=== PATIENT | female | born 1945 | race Caucasian/White ===

== ENCOUNTER 2016-03-15 10:41 | Outpatient (CLI) | payer MEDICARE, OTHER | END 2016-03-15 10:42 | disposition home or self-care (01) | DX: Z53.9 Procedure and treatment not carried out, unspecified reason (principal) ==

== ENCOUNTER 2016-03-28 11:01 | Outpatient (CLI) | payer MEDICARE, OTHER | END 2016-03-28 11:02 | disposition home or self-care (01) | DX: N64.4 Mastodynia (principal) ==

== ENCOUNTER 2016-04-13 11:50 | Outpatient (CLI) | payer MEDICARE, OTHER | END 2016-04-13 11:51 | disposition home or self-care (01) | DX: E78.5 Hyperlipidemia, unspecified (principal); I10 Essential (primary) hypertension; R00.2 Palpitations ==

== ENCOUNTER 2016-04-23 11:13 | Outpatient (CLI) | payer MEDICARE, OTHER | END 2016-04-23 11:14 | disposition home or self-care (01) | DX: M85.89 Other specified disorders of bone density and structure, multiple sites (principal) ==

== ENCOUNTER 2016-08-15 08:24 | Day surgery (SDC) | payer MEDICARE, OTHER ==
[2016-08-15] MEDS ORDERED: LACTATED RINGERS 1,000 ML IV ONE (08:44)
[2016-08-15] MEDS ORDERED: MIDAZOLAM 2 MG/2 ML VIAL IVP ONE (09:43)
[2016-08-15] MEDS ORDERED: fentaNYL 100 MCG/2 ML VIAL IVP ONE (09:43)
[2016-08-15 10:47] VITALS: BP 132/54
--- NOTE | 2016-08-15 11:39 | PROCEDURE REPORT ---
DATE OF PROCEDURE: 08/15/2016 00:00:00 PROCEDURE PERFORMED: Colonoscopy with biopsy. ENDOSCOPIST: Jose Smith MD PRIMARY CARE: Alireza Landon DO INDICATION: Diarrhea, rule out microscopic colitis. PREMEDICATIONS: Fentanyl 150 mcg, Versed 7 mg IV titration. After informed consent was obtained, the patient was placed in left lateral decubitus position. The v ideo colonoscope was introduced in the rectum, slowly advanced to the cecum. On slow withdrawal, muco sa was carefully examined. The scope was removed. The patient tolerated the procedure well. BLOOD LOSS: None. COMPLICATIONS: None. FINDINGS: Normal colonoscopy to cecum, though with perhaps some loss of normal vascular pattern. [place] om biopsies taken to rule out microscopic colitis. The patient will await biopsies and we will discuss over the telephone. She should have followup colo noscopy in 7-10 years. JOB #: [id number] EXT JOB #:[id number]
== END 2016-08-15 08:25 | disposition home or self-care (01) ==
LOC: SDS 08:24
PROVIDERS: ATTEND Internal Medicine Gastroenterology
PROC: 0DBE8ZX Excision of Large Intestine, Via Natural or Artificial Opening Endoscopic, Diagnostic (ICD-10-PCS; principal; 2016-08-15 09:30)
DX: R19.7 Diarrhea, unspecified (principal); K51.90 Ulcerative colitis, unspecified, without complications; I10 Essential (primary) hypertension; E78.00 Pure hypercholesterolemia, unspecified; K58.9 Irritable bowel syndrome, unspecified; I47.1 Supraventricular tachycardia; Z79.82 Long term (current) use of aspirin; Z88.0 Allergy status to penicillin; Z88.2 Allergy status to sulfonamides
CPT/HCPCS: 45380; J7120; 88305

== ENCOUNTER 2016-09-24 09:32 | Outpatient (CLI) | payer MEDICARE, OTHER | END 2016-09-24 09:33 | disposition home or self-care (01) | LOC: LAB.WCP 09:32 | PROVIDERS: ATTEND Internal Medicine Gastroenterology | DX: R19.7 Diarrhea, unspecified (principal) | CPT/HCPCS: 87493 ==

== ENCOUNTER 2017-07-08 08:00 | Outpatient (CLI) | payer MEDICARE, OTHER ==
[2017-07-08 18:54] LABS: BASOPHILS # (AUTO) 0.1 10^3/uL (0.0-0.1); BASOPHILS % (AUTO) 1.3 %; EOSINOPHILS # (AUTO) 0.4 10^3/uL (0.0-0.7); EOSINOPHILS % (AUTO) 5.8 %; HGB - HEMOGLOBIN 12.7 g/dL (12.0-16.0); LYMPHOCYTES # (AUTO) 1.7 10^3/uL (1.5-3.5); LYMPHOCYTES % (AUTO) 25.2 %; MEAN CORPUSCULAR HEMOGLOBIN 31.1 pg (27.0-31.0); MEAN CORPUSCULAR VOLUME 97.2 fL (81.0-99.0); MEAN PLATELET VOLUME 7.9 fL (7.9-10.8); MONOCYTES # (AUTO) 0.7 10^3/uL (0.0-1.0); MONOCYTES % (AUTO) 9.8 %; NEUTROPHILS # (AUTO) 3.9 10^3/uL (1.5-6.6); NEUTROPHILS % (AUTO) 57.9 %; PLT - PLATELET COUNT 289 10^3/uL (130-450); RED CELL DISTRIBUTION WIDTH 13.1 % (12.0-15.0); WHITE BLOOD COUNT 6.7 x10^3/uL (4.8-10.8)
[2017-07-08 19:26] LABS: ALBUMIN 4.5 g/dL (3.2-5.5); ALBUMIN/GLOBULIN RATIO 1.5 (1.0-2.2); ALKALINE PHOSPHATASE 91 IU/L (42-121); ALT ALANINE AMINOTRANSFERASE 33 IU/L (10-60); AST ASPARTATE AMINOTRANSFERASE 34 IU/L (10-42); BUN - BLOOD UREA NITROGEN 18 mg/dL (6-20); CALCIUM 9.2 mg/dL (8.5-10.3); CARBON DIOXIDE - CO2 24 mmol/L (21-32); CHLORIDE 103 mmol/L (101-111); CHOL/HDL RATIO 3.3 (<4.4); CHOLESTEROL 286 mg/dL; CREATININE 0.5 mg/dL (0.4-1.0); GFR - MDRD 121 (>89); GLUCOSE 86 mg/dL (70-100); HDL CHOLESTEROL 88 mg/dL; LDL CHOLESTEROL,CALCULATED 176 mg/dL; SODIUM 138 mmol/L (135-145); TOTAL PROTEIN 7.5 g/dL (6.7-8.2); VLDL CHOLESTEROL 22 mg/dL
== END 2017-07-08 08:01 | disposition home or self-care (01) ==
LOC: LAB.WCP 08:00
PROVIDERS: ATTEND Family Medicine
DX: R00.2 Palpitations (principal); E78.5 Hyperlipidemia, unspecified
CPT/HCPCS: 36415; 80053; 80061; 83721; 84443; 85025

== ENCOUNTER 2017-11-24 08:40 | Emergency (ER) | payer MEDICARE, OTHER ==
--- NOTE | 2017-11-24 09:02 | ED Physician Documentation ---
History of Present Illness - Stated complaint Stated Complaint: CP/PX LT SIDE SHOULDER/NECK/DIZZINESS - Chief complaint Chief Complaint: Cardiac - Additonal information Additional information: hx from pt 72 female has had L shoulder and neck pain for about 3 weeks started after digging holes in garden all day worse with moving neck and shoulder last night at midnight developed more severe pain that radiated to her chest no SOA diaphoresis NV no leg swelling or TTP did more lifting of heavy hoses yesterday otherwise well no fever cough NVD etc is vertiginous but not new for her has HTN HLD no DM CAD fhx CAD or smoking hx Review of Systems Constitutional: denies: Fever Cardiac: reports: Chest pain / pressure Respiratory: denies: Dyspnea GI: denies: Nausea, Vomiting Neurologic: reports: Other (dizzy). 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 : Incontinence HEENT: None Psych: None Musculoskeletal: None Derm: None - Past Surgical History Past Surgical History: Yes General: Appendectomy, Colonoscopy - Present Medications Home Medications: Ambulatory Orders Medication Instructions Recorded Confirmed Aspirin [Aspir-Low] 81 mg PO DAILY 05/31/13 08/15/16 Metoprolol Tartrate [Lopressor] 0 mg PO BID 05/31/13 08/15/16 Lidocaine Patch 5% [Lidoderm Patch] 1 each TOP DAILY PRN #10 patch 11/24/17 Meclizine [Antivert] 25 mg PO Q6H PRN #20 tablet 11/24/17 Pravastatin [Pravachol] 11/24/17 - Allergies Allergies/Adverse Reactions: Allergies Allergy/AdvReac Type Severity Reaction Status Date / Time oxycodone HCl * AdvReac Severe Hallucinati Verified 11/24/17 08:48 [From Percodan] ons oxycodone terephthalate * AdvReac Severe Hallucinati Verified 11/24/17 08:48 [From Percodan] ons Penicillins AdvReac Severe Itching Verified 11/24/17 08:48 Sulfa (Sulfonamide AdvReac Severe Itching Verified 11/24/17 08:48 Antibiotics) - Social History Does the pt smoke?: No Smoking Status: Never smoker Does the pt drink ETOH?: Yes Does the pt have substance abuse?: No - Immunizations Immunizations are current?: Yes PD ED PE NORMAL - Vitals Vital signs reviewed: Yes - General General: Alert and oriented X 3 - Cardiac Cardiac: RRR - Respiratory Respiratory: No respiratory distress - Abdomen Abdomen: Soft, Non tender - Derm Derm: Normal color - Extremities Extremities: No deformity - Neuro Neuro: Alert and oriented X 3, 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, No motor deficit, Normal speech Eye Opening: Spontaneous Motor: Obeys Commands Verbal: Oriented GCS Score: 15 Results - Vitals Vitals: Vital Signs - 24 hr 11/24/17 11/24/17 08:52 10:06 Temperature 36.2 C L Heart Rate 85 72 Respiratory 17 15 Rate Blood Pressure 189/81 H 154/69 H O2 Saturation 100 99 Oxygen O2 Source Room air - EKG (time done) 0845 Rate: Rate (enter#) (75) Rhythm: NSR Bell: Normal Intervals: Normal [place] Ischemia: Normal ST segments, Non specific changes (maybe very slght ST depr laterally) - Labs Labs: Laboratory Tests 11/24/17 11/24/17 11/24/17 09:21 09:21 09:21 WBC 6.2 RBC 3.83 L Hgb 12.5 Hct 36.6 L MCV 95.4 MCH 32.7 H MCHC 34.3 RDW 12.4 Plt Count 267 MPV 6.9 L Neut # (Auto) 3.5 Lymph # (Auto) 1.4 L [place] # (Auto) 0.7 Eos # (Auto) 0.6 Baso # (Auto) 0.1 Absolute Nucleated RBC 0.00 Nucleated RBC % 0.0 Sodium 138 Potassium 4.1 Chloride 103 Carbon Dioxide 25 Anion Gap 10.0 BUN 19 Creatinine 0.7 Estimated GFR (MDRD) 82 L Glucose 96 Calcium 9.1 Total Bilirubin 0.9 AST 40 ALT 55 Alkaline Phosphatase 129 H Troponin I < 0.04 Total Protein 7.2 Albumin 4.2 Globulin 3.0 Albumin/Globulin Ratio 1.4 Lipase 49 - Rads (name of study) CXR Radiology: See rad report (NACPD, tight normal mediastinum, no cap or effusion) PD MEDICAL DECISION MAKING - ED course ED course: labs EKG CXR all neg suspect muscular given hx gardening and worse with movements feels ER wup has ruled out ACS PE dissection pt and SO reassured will dc with symptomatic jj as well as meclizine for vertigo which is not new - Sepsis Event Vital Signs: Vital Signs - 24 hr 11/24/17 11/24/17 08:52 10:06 Temperature 36.2 C L Heart Rate 85 72 Respiratory 17 15 Rate Blood Pressure 189/81 H 154/69 H O2 Saturation 100 99 Oxygen O2 Source Room air Departure - Departure Disposition: 01 Home, Self Care Clinical Impression: Vertigo Chest pain Qualifiers: Chest pain type: unspecified Qualified Code(s): R07.9 - Chest pain, unspecified Condition: Good Instructions: ED Chest Pain Atypical Unkn Cause Follow-Up: Alireza Landon DO [Primary Care Provider] - Prescriptions: Lidocaine Patch 5% [Lidoderm Patch] 1 each TOP DAILY PRN #10 patch PRN Reason: Pain Meclizine [Antivert] 25 mg PO Q6H PRN #20 tablet PRN Reason: Dizziness Comments: All your tests came back fine. The EKG, the blood tests for your heart, the xray It does not seem this pain is due to a heart attack, a blood clot in your lungs nor an aneuryms or tear of your aorta It may be due to muscular pain given your recent gardening and moving hoses and since it hurts more when you move I think it is safe for you to go home with tylenol and lidocaine patches as needed for the pain And meclizine to try for your recurrent vertigo Please follow up with your PMD for a recheck this week. Return f worse or new symptoms develop
[2017-11-24] MEDS ORDERED: ACETAMINOPHEN 1,000 MG/100 ML 100 ML IV STA (09:06)
[2017-11-24] MEDS ORDERED: MECLIZINE 12.5 MG TABLET PO STA (09:06)
[2017-11-24] MEDS ORDERED: LIDOCAINE PATCH 5% TOP PRN (09:06)
[2017-11-24 09:25] LABS: BASOPHILS # (AUTO) 0.1 10^3/uL (0.0-0.1); BASOPHILS % (AUTO) 1.5 %; EOSINOPHILS # (AUTO) 0.6 10^3/uL (0.0-0.7); EOSINOPHILS % (AUTO) 9.1 %; HGB - HEMOGLOBIN 12.5 g/dL (12.0-16.0); LYMPHOCYTES # (AUTO) 1.4 10^3/uL (1.5-3.5); LYMPHOCYTES % (AUTO) 22.4 %; MEAN CORPUSCULAR HEMOGLOBIN 32.7 pg (27.0-31.0); MEAN CORPUSCULAR HGB CONC 34.3 g/dL (32.0-36.0); MEAN CORPUSCULAR VOLUME 95.4 fL (81.0-99.0); MEAN PLATELET VOLUME 6.9 fL (7.9-10.8); MONOCYTES # (AUTO) 0.7 10^3/uL (0.0-1.0); MONOCYTES % (AUTO) 10.8 %; NEUTROPHILS # (AUTO) 3.5 10^3/uL (1.5-6.6); NEUTROPHILS % (AUTO) 56.2 %; PLT - PLATELET COUNT 267 10^3/uL (130-450); RED BLOOD COUNT 3.83 10^6/uL (4.20-5.40); RED CELL DISTRIBUTION WIDTH 12.4 % (12.0-15.0); WHITE BLOOD COUNT 6.2 x10^3/uL (4.8-10.8)
--- NOTE | 2017-11-24 09:34 | XRAY Report ---
Reason: cp Procedure Date: 11/24/2017 Accession Number: [id number] / [id number] Procedure: XR - Chest 1 View X-Ray CPT Code: 51794 FULL RESULT: EXAM: CHEST RADIOGRAPHY EXAM DATE: 11/24/2017 09:22 AM. CLINICAL HISTORY: Cp. COMPARISON: None. TECHNIQUE: 1 view. FINDINGS: Lungs/Pleura: No focal opacities evident. No pleural effusion. No pneumothorax. Mediastinum: Within exam limitations, the cardiomediastinal contour is normal. Other: Bones appear osteopenic. IMPRESSION: No acute cardiopulmonary abnormality. RADIA
[2017-11-24 09:38] LABS: ALBUMIN 4.2 g/dL (3.2-5.5); ALBUMIN/GLOBULIN RATIO 1.4 (1.0-2.2); BILIRUBIN,TOTAL 0.9 mg/dL (0.2-1.0); CALCIUM 9.1 mg/dL (8.5-10.3); CREATININE 0.7 mg/dL (0.4-1.0); TOTAL PROTEIN 7.2 g/dL (6.7-8.2)
[2017-11-24 10:07] VITALS: BP 154/69
[2017-11-24] MEDS ORDERED: KETOROLAC 60 MG/2 ML VIAL IVP STA (10:20)
== END 2017-11-24 10:54 | disposition home or self-care (01) ==
LOC: ED 08:40
DX: R42 Dizziness and giddiness (principal); R07.9 Chest pain, unspecified; I10 Essential (primary) hypertension; Z79.82 Long term (current) use of aspirin
CPT/HCPCS: 36415; 71045; 80053; 83690; 84484; 85025; 93005; 96365; 99283; 99284; A9270; J0131

== ENCOUNTER 2018-06-11 11:28 | Outpatient (CLI) | payer MEDICARE, OTHER ==
--- NOTE | 2018-06-11 14:36 | CARDIAC PROCEDURE NOTE ---
DATE OF SERVICE: 06/11/2018 Physician: Amelia Marx MD, [facility] INDICATIONS: Palpitations, hypertension. CARDIAC RISK FACTORS: Postmenopausal status, hypertension, hyperlipidemia. PROCEDURE: After signing informed consent, the patient performed exercise on a Richy protocol treadmill stress test. No imaging was ordered with this study. RESTING HEART RATE: 77. Peak heart rate: 138 (94% predicted maximum heart rate for age). RESTING BLOOD PRESSURE: 146/74. Peak blood pressure: 199/82. The patient exercised for 3 minutes and 42 seconds on a Richy protocol treadmill stress test. She developed [id number] shortness of breath at peak, had no chest pain or complaints of palpitations. Treadmill was stopped because of reaching target heart rate and due to her shortness of breath. The patient reached 94% PMHR and 5.5 METS. Oxygen saturation was 98% on room air at peak. Accelerated heart rate and hypertensive blood pressure response to exercise were seen. No ectopy was seen. RESTING EKG: Normal sinus rhythm, within normal limits. EKG AT PEAK: [address] depressions in leads II, III, and aVF, and V5- V6. SUMMARY 1. Hypertensive BP response to exercise. 2. Fair exercise tolerance. 3. Nonspecific ST changes for ischemia were noted, at an adequate level of stress. 4. No ectopy noted during exercise or rest. 5. No imaging study was ordered with this test. cc: Edgardo Sosa MD TD: 06/11/2018 13:14 MTDD
== END 2018-06-11 11:29 | disposition home or self-care (01) ==
LOC: DI 11:28
PROVIDERS: ATTEND Internal Medicine Cardiovascular Disease
DX: I10 Essential (primary) hypertension (principal); R00.2 Palpitations; E78.5 Hyperlipidemia, unspecified; Z78.0 Asymptomatic menopausal state
CPT/HCPCS: 93016; 93017; 93018

== ENCOUNTER 2018-11-20 08:00 | Outpatient (CLI) | payer MEDICARE, OTHER ==
[2018-11-20 18:46] LABS: BASOPHILS % (AUTO) 1.1 %; HGB - HEMOGLOBIN 11.6 g/dL (12.0-16.0); LYMPHOCYTES % (AUTO) 20.7 %; MEAN CORPUSCULAR HEMOGLOBIN 32.1 pg (27.0-31.0); MEAN CORPUSCULAR HGB CONC 31.6 g/dL (32.0-36.0); MEAN CORPUSCULAR VOLUME 101.7 fL (81.0-99.0); MEAN PLATELET VOLUME 9.2 fL (7.9-10.8); MONOCYTES % (AUTO) 8.3 %; NEUTROPHILS % (AUTO) 57.5 %; PLT - PLATELET COUNT 311 10^3/uL (130-450); RED BLOOD COUNT 3.61 10^6/uL (4.20-5.40); RED CELL DISTRIBUTION WIDTH 12.2 % (12.0-15.0); WHITE BLOOD COUNT 8.6 x10^3/uL (4.8-10.8)
[2018-11-20 18:52] LABS: ABNORMAL LYMPHS % (MANUAL) 0 %; BAND NEUTROPHILS % (MANUAL) 0 %
[2018-11-20 19:04] LABS: ALBUMIN 4.8 g/dL (3.2-5.5); ALBUMIN/GLOBULIN RATIO 1.5 (1.0-2.2); ALKALINE PHOSPHATASE 100 IU/L (42-121); ALT ALANINE AMINOTRANSFERASE 40 IU/L (10-60); AST ASPARTATE AMINOTRANSFERASE 33 IU/L (10-42); BILIRUBIN,TOTAL 0.9 mg/dL (0.2-1.0); BUN - BLOOD UREA NITROGEN 28 mg/dL (6-20); CALCIUM 9.4 mg/dL (8.5-10.3); CARBON DIOXIDE - CO2 27 mmol/L (21-32); CHLORIDE 103 mmol/L (101-111); CHOL/HDL RATIO 2.5 (<4.4); CHOLESTEROL 265 mg/dL; CREATININE 0.8 mg/dL (0.4-1.0); GFR - MDRD 70 (>89); GLUCOSE 83 mg/dL (70-100); HDL CHOLESTEROL 104 mg/dL; LDL CHOLESTEROL,CALCULATED 138 mg/dL; LDL/HDL RATIO 1.3 (<4.4); PREALBUMIN 36 mg/dL (18-45); SODIUM 139 mmol/L (135-145); VLDL CHOLESTEROL 23 mg/dL
[2018-11-20 19:33] LABS: BASOPHILS # (MANUAL) 0.2 10^3/uL (0-0.1); BASOPHILS % (MANUAL) 2 %; DIFFERENTIAL COMMENT MANUAL DIFFERENTIAL; LYMPHOCYTES # (MANUAL) 2.1 10^3/uL (1.5-3.5); LYMPHOCYTES % (MANUAL) 24 %; MONOCYTES # (MANUAL) 0.6 10^3/uL (0.0-1.0); PLATELET ESTIMATE, MANUAL NORMAL (130-450,000) (NORMAL); PLATELET MORPHOLOGY NORMAL APPEARANCE (NORMAL); RBC MORPHOLOGY (MULTIPLE) 1+ MACROCYTOSIS (NORMAL)
== END 2018-11-20 23:59 | disposition home or self-care (01) ==
LOC: LAB.WCP 08:00
PROVIDERS: ATTEND Family Medicine
DX: R63.4 Abnormal weight loss (principal); I10 Essential (primary) hypertension
CPT/HCPCS: 36415; 80053; 80061; 83721; 84134; 84443; 85025

== ENCOUNTER 2018-12-11 13:14 | Outpatient (CLI) | payer MEDICARE, OTHER ==
--- NOTE | 2018-12-17 15:03 | Mammography Report ---
Reason: SCREENING Procedure Date: 12/11/2018 Accession Number: [id number] / [id number] Procedure: [facility] - Screening Mammo w/[facility] CPT Code: FULL RESULT: EXAM: Screening Mammo w/Landon DATE: 12/11/2018 2:00 PM CLINICAL HISTORY: Routine screening TECHNIQUE: (B) - Bilateral CC and MLO views were obtained. COMPARISON: 02/03/2015, 02/11/2013 and 01/14/2012 PARENCHYMAL PATTERN: (A) - The breasts demonstrate scattered fibroglandular densities bilaterally. FINDINGS: No significant interval change. There are no suspicious masses, calcifications, or areas of distortion. IMPRESSION: Negative examination. BI-RADS category 1. RECOMMENDATION: (ANNUAL) - Recommend routine annual screening mammography. BI-RADS CATEGORY: (1) - Negative. STANDARD QUALIFYING STATEMENTS: 1. This examination was not reviewed with the aid of Computer-Aided Detection (CAD). 2. A negative or benign imaging report should not preclude biopsy if clinically suspicious findings are present. 3. Dense breasts may obscure an underlying neoplasm. 4. This examination was reviewed with the aid of 3D breast imaging (tomosynthesis).
== END 2018-12-11 13:15 | disposition home or self-care (01) ==
LOC: DI 13:14
DX: Z12.31 Encounter for screening mammogram for malignant neoplasm of breast (principal)
CPT/HCPCS: 77063; 77067

== ENCOUNTER 2018-12-16 00:24 | Outpatient (CLI) | payer MEDICARE, OTHER | END 2018-12-16 00:25 | disposition critical access hospital (66) | LOC: EMS 00:24 | PROVIDERS: ATTEND Surgery | DX: M25.551 Pain in right hip (principal); W19.XXXA Unspecified fall, initial encounter; Y92.003 Bedroom of unspecified non-institutional (private) residence as the place of occurrence of the external cause | CPT/HCPCS: A0425; A0427 ==

== ENCOUNTER 2018-12-16 00:50 | Inpatient (IN) | payer MEDICARE, OTHER ==
--- NOTE | 2018-12-16 01:03 | ED Physician Documentation ---
PD HPI LOWER EXT INJURY - Stated complaint Stated Complaint: GLF/ R HIP PX - History obtained from History obtained from: Patient, Family - History of Present Illness PD HPI LOW EXT INJURY LOCATION: Right, Hip Type of injury: Fall Where injury occurred: Home Timing - onset: How many minutes ago (approximately 30-40 minutes [employer]) Timing - details: Abrupt onset Pain level now: 9 Improved by: Rest Worsened by: Moving, Palpating Associated symptoms: No: Weakness, Numbness Contributing factors: No: Anticoagulated Similar symptoms before: Has not had sx before Recently seen: Not recently seen - Additional information Additional information: patient recalls getting ready for bed tonight and was feeling well; she suddenly found herself on the floor in her bedroom with her standing next to her. She does not recall falling but suddenly had severe right hip pain. found patient on floor in bedroom awake and alert but in severe pain due to right hip pain. BIBA, given morphine and fentanyl en route with transient relief Review of Systems Constitutional: reports: Reviewed and negative Nose: reports: Reviewed and negative Throat: reports: Reviewed and negative Cardiac: reports: Reviewed and negative Respiratory: reports: Reviewed and negative GI: reports: Reviewed and negative : denies: Dysuria, Frequency, Incontinent Skin: reports: Reviewed and negative Musculoskeletal: reports: Joint pain, Pain with weight bearing (unable to weight-bear RLE). denies: Neck pain, Back pain Neurologic: reports: Syncope, LOC. 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 : Incontinence HEENT: None Psych: None Musculoskeletal: None Derm: None - Past Surgical History Past Surgical History: Yes General: Appendectomy, Colonoscopy - Present Medications Home Medications: Ambulatory Orders Medication Instructions Recorded Confirmed Aspirin [Aspir-Low] 81 mg PO DAILY 05/31/13 08/15/16 Metoprolol Tartrate [Lopressor] 0 mg PO BID 05/31/13 08/15/16 Lidocaine Patch 5% [Lidoderm Patch] 1 each TOP DAILY PRN #10 patch 11/24/17 Meclizine [Antivert] 25 mg PO Q6H PRN #20 tablet 11/24/17 Pravastatin [Pravachol] 11/24/17 - Allergies Allergies/Adverse Reactions: Allergies Allergy/AdvReac Type Severity Reaction Status Date / Time oxycodone HCl * AdvReac Severe Hallucinati Verified 11/24/17 08:48 [From Percodan] ons oxycodone terephthalate * AdvReac Severe Hallucinati Verified 11/24/17 08:48 [From Percodan] ons Penicillins AdvReac Severe Itching Verified 11/24/17 08:48 Sulfa (Sulfonamide AdvReac Severe Itching Verified 11/24/17 08:48 Antibiotics) - Social History Does the pt smoke?: No Smoking Status: Never smoker Does the pt drink ETOH?: Yes Does the pt have substance abuse?: No - Immunizations Immunizations are current?: Yes PD ED PE NORMAL - Vitals Vital signs reviewed: Yes - General General: Alert and oriented X 3, Well developed/nourished, Other (waxing and waning painful distress during H+P) - HEENT HEENT: Atraumatic, PERRL, EOMI, Moist mucous membranes - Neck Neck: No bony TTP - Cardiac Cardiac: RRR, No murmur - Respiratory Respiratory: No respiratory distress, Clear bilaterally - Abdomen Abdomen: Soft, Non tender - Back Back: No spinal TTP - Derm Derm: Normal color, Warm and dry - Neuro Neuro: Alert and oriented X 3, 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, No motor deficit, No sensory deficit Eye Opening: Spontaneous Motor: Obeys Commands Verbal: Oriented GCS Score: 15 PD ED PE EXPANDED - Extremities Extremities: Tenderness, Limited ROM, Right hip Results - Vitals Vitals: Vital Signs - 24 hr 12/16/18 12/16/18 12/16/18 00:53 01:04 02:32 Temperature 36.8 C Heart Rate 87 83 80 Respiratory 18 18 16 Rate Blood Pressure 156/76 H 149/99 H 135/69 H O2 Saturation 95 96 97 Oxygen O2 Source Room air - EKG (time done) No standard instances Rate: Rate (enter#) (75) Rhythm: NSR Blanch: Normal Intervals: Normal [place] QRS: Normal Ischemia: Normal ST segments - Labs Labs: Laboratory Tests 12/16/18 12/16/18 12/16/18 01:00 01:00 01:00 WBC 7.5 RBC 3.44 L Hgb 11.1 L Hct 34.3 L MCV 99.7 H MCH 32.3 H MCHC 32.4 RDW 11.9 L Plt Count 280 MPV 8.7 Neut # (Auto) 3.8 Lymph # (Auto) 2.2 [place] # (Auto) 0.6 Eos # (Auto) 0.8 H Baso # (Auto) 0.1 Absolute Nucleated RBC 0.00 Nucleated RBC % 0.0 Sodium 142 Potassium 3.8 Chloride 106 Carbon Dioxide 25 Anion Gap 11.0 BUN 27 H Creatinine 1.0 Estimated GFR (MDRD) 54 L Glucose 106 H Lactic Acid 1.9 Calcium 8.7 Total Bilirubin 0.6 AST 33 ALT 34 Alkaline Phosphatase 87 Total Protein 7.7 Albumin 4.3 Globulin 3.4 Albumin/Globulin Ratio 1.3 Lipase 86 H - Rads (name of study) right hip xrays Radiology: Prelim report reviewed, See rad report right hip CT Radiology: Prelim report reviewed, See rad report CT head Radiology: Prelim report reviewed, See rad report chest xray Radiology: Prelim report reviewed, See rad report PD MEDICAL DECISION MAKING - ED course Complexity details: reviewed results, re-evaluated patient, considered differential, d/w patient Departure - Departure Disposition: [facility] DC/Xfer Clinical Impression: Hip fracture, right Qualifiers: Encounter type: initial encounter Fracture type: closed Qualified Code(s): S72.001A - Fracture of unspecified part of neck of right femur, initial encounter for closed fracture Condition: Stable Discharge Date/Time: 12/16/18 03:20
[2018-12-16] MEDS ORDERED: HYDROmorphone 1 MG/ML CARPUJECT IVP STA ×5 (01:17→04:05)
[2018-12-16 01:19] LABS: BASOPHILS # (AUTO) 0.1 10^3/uL (0.0-0.1); BASOPHILS % (AUTO) 0.9 %; EOSINOPHILS # (AUTO) 0.8 10^3/uL (0.0-0.7); HGB - HEMOGLOBIN 11.1 g/dL (12.0-16.0); LYMPHOCYTES # (AUTO) 2.2 10^3/uL (1.5-3.5); MEAN CORPUSCULAR HEMOGLOBIN 32.3 pg (27.0-31.0); MEAN CORPUSCULAR HGB CONC 32.4 g/dL (32.0-36.0); MEAN CORPUSCULAR VOLUME 99.7 fL (81.0-99.0); MEAN PLATELET VOLUME 8.7 fL (7.9-10.8); MONOCYTES # (AUTO) 0.6 10^3/uL (0.0-1.0); MONOCYTES % (AUTO) 8.5 %; NEUTROPHILS # (AUTO) 3.8 10^3/uL (1.5-6.6); NEUTROPHILS % (AUTO) 50.1 %; PLT - PLATELET COUNT 280 10^3/uL (130-450); RED BLOOD COUNT 3.44 10^6/uL (4.20-5.40); RED CELL DISTRIBUTION WIDTH 11.9 % (12.0-15.0); WHITE BLOOD COUNT 7.5 x10^3/uL (4.8-10.8)
[2018-12-16 01:28] LABS: ALBUMIN 4.3 g/dL (3.2-5.5); ALBUMIN/GLOBULIN RATIO 1.3 (1.0-2.2); BILIRUBIN,TOTAL 0.6 mg/dL (0.2-1.0); CALCIUM 8.7 mg/dL (8.5-10.3); TOTAL PROTEIN 7.7 g/dL (6.7-8.2)
--- NOTE | 2018-12-16 02:17 | XRAY Report ---
Reason: fall, LOC, hip injury Procedure Date: 12/16/2018 Accession Number: [id number] / [id number] Procedure: XR - Chest 1 View X-Ray CPT Code: 65256 FULL RESULT: EXAM: CHEST RADIOGRAPHY EXAM DATE: 12/16/2018 01:45 AM. CLINICAL HISTORY: Fall, LOC, hip injury. COMPARISON: None. TECHNIQUE: 1 view. FINDINGS: Lungs/Pleura: No focal opacities evident. No pleural effusion. No pneumothorax. Mediastinum: Within exam limitations, the cardiomediastinal contour is normal. Other: None. IMPRESSION: Normal single view chest. RADIA
--- NOTE | 2018-12-16 02:17 | XRAY Report ---
Reason: GLF, rotated and shortened Procedure Date: 12/16/2018 Accession Number: [id number] / [id number] Procedure: XR - Hip w/Pelvis 2-3V RT CPT Code: FULL RESULT: EXAM: RIGHT HIP RADIOGRAPHY EXAM DATE: 12/16/2018 01:45 AM. CLINICAL HISTORY: GLF, rotated and shortened. COMPARISON: None. TECHNIQUE: 2 views. FINDINGS: Bones: There is a right femoral neck fracture with angulation of the fracture fragments. Joints: The left hip is intact per the ring of the pelvis is intact. Soft Tissues: Normal. No soft tissue swelling. Chest x-ray: The lungs are clear. The heart and jairo were normal. No pleural effusions. IMPRESSION: 1. Angulated right femoral neck fracture. RADIA
--- NOTE | 2018-12-16 02:31 | CT Report ---
Reason: LOC, fall Procedure Date: 12/16/2018 Accession Number: [id number] / [id number] Procedure: CT - HEAD WO CPT Code: FULL RESULT: EXAM: CT HEAD EXAM DATE: 12/16/2018 01:42 AM. CLINICAL HISTORY: Loss of consciousness, fall. COMPARISON: BRAIN W/O 12/05/2012 2:44 PM. TECHNIQUE: Multiaxial CT images were obtained from the foramen magnum to the vertex. Reformats: Sagittal and coronal. IV contrast: None. In accordance with CT protocol optimization, one or more of the following dose reduction techniques were utilized for this exam: automated exposure control, adjustment of mA and/or KV based on patient size, or use of iterative reconstructive technique. FINDINGS: Parenchyma: No intraparenchymal hemorrhage. No evidence of mass, midline shift, or CT findings of infarction. Fine-white differentiation is distinct. Mild small vessel disease. Extraaxial Spaces: Normal for age. No subdural or epidural collections identified. Ventricles: Normal in size and position. Sinuses and Orbits: Imaged paranasal sinuses, orbits, and mastoids show no significant abnormality. Bones: No evidence of fracture or calvarial defect. Other: None. IMPRESSION: 1. No acute intracranial abnormality. RADIA
[2018-12-16] MEDS ORDERED: ONDANSETRON ODT 4 MG TABLET TL PRN (02:50)
[2018-12-16] MEDS ORDERED: ONDANSETRON 4 MG/2 ML VIAL IVP PRN ×2 (02:50→13:54)
--- NOTE | 2018-12-16 02:57 | HISTORY & PHYSICAL EXAMINATION ---
Chief Complaint - Chief Complaint Chief Complaint: fall with right hip pain History of Present Illness - Admitted From Admitted From:: Home/ER - History Obtained From Records Reviewed: [facility] History obtained from: Dr. Saini and patient Exam Limitations: pain - History of Present Illness HPI Comment/Other: She is an elderly white female who lives in her own home that is single level, handicap accessible. She has a walk-in shower. She is independent with activities of daily living. She has been under some recent stress from activities in the neighborhood and lawsuits among the neighborhood. She is lost 7 to 10 pounds for unexplained reasons. She does have a history of 5 beats of V. tach on Holter monitor in April of this year. This was done because of a sensation of palpitations. A previous Holter in 2014 was negative other than for PACs and PVCs and she is on a beta-carley for this. She was getting ready for bed tonight. She suddenly fell down. There is no antecedent warning, chest pain, palpitations, shortness of breath, nausea. She just found herself on the ground. Her helped get her up and she had immediate hip pain. She was brought to the emergency room where she was evaluated by Dr. Saini. She was found to have a right hip fracture. She does have a normal blood pressure of 125/60. She is mildly hypothermic at 36.3. O2 sats are 87% on room air when she goes to sleep. When she wakes up they go right back up to 94% on room air. She goes to sleep mainly because of Dilaudid. On review of systems cardiac review of systems is negative at this time. She denies cough, chest congestion. Denies any change in bowel habits and has chronic diarrhea. History - Past Medical History Cardiovascular: reports: Hypertension (was on metoprolol for palpitations. BP rian by 07/13 and norvasc added. ), High cholesterol, Other (Palpitations . Sees Dr. Martinez. ECHO nml 2011, Holter <0.1% PVC and PAC on holter 2014. ZioIrhythm patch with 5 beats of slow v tach 05/08/18. Richy protocol stress test neg 06/11/18 ) Respiratory: reports: None Neuro: reports: Other (lumbar radiculopathy) Endocrine/Autoimmune: reports: None GI: reports: Ulcerative colitis (with last scope 08/15/16 showing architecturally intact , uninflamed colonic mucoa wihtout diagnostic alterations. neg for microscopic colitis), Other (loss of weight) [employer]: reports: Other () : reports: Incontinence HEENT: reports: None Psych: reports: Anxiety Musculoskeletal: reports: Osteoporosis, Chronic back pain, Other Derm: reports: Eczema, Other (tinea corporis, ) MRSA Hx?: No - Past Surgical History General: reports: Appendectomy, Colonoscopy Ortho: reports: Other (right wrist fracture with repair 1978) - Family & Social History Family History Comment/Other: mom of old age 92 and did not have any CAD, HTN, DM, thyroid. dad of lung cancer 73. 6 bothers and she is the youngest: 3 have of senescence. 1 child is healthy without HTN, DM, cancer Living arrangement: At home Living Situation: With spouse/s.o. Social History Notes: to her second husand. She never smoked and rarely drinks. She has no hx of substance abuse. They live in their own home that is single level, handicap friendly. - Substance History Use: Uses substance without health or social issues: NONE Abuse: Recurrent use of substance despite neg consequences: NONE Dependence: Experiences withdrawal or developed tolerances: NONE - POLST Patient has POLST: No POLST Status: Full Code Meds/Allgy - Home Medications Home Medications: Ambulatory Orders Medication Instructions Recorded Confirmed Aspirin [Aspir-Low] 81 mg PO DAILY 05/31/13 08/15/16 Metoprolol Tartrate [Lopressor] 0 mg PO BID 05/31/13 08/15/16 Lidocaine Patch 5% [Lidoderm Patch] 1 each TOP DAILY PRN #10 patch 11/24/17 Meclizine [Antivert] 25 mg PO Q6H PRN #20 tablet 11/24/17 Pravastatin [Pravachol] 11/24/17 - Allergies Allergies/Adverse Reactions: Allergies Allergy/AdvReac Type Severity Reaction Status Date / Time oxycodone HCl * AdvReac Severe Hallucinati Verified 11/24/17 08:48 [From Percodan] ons oxycodone terephthalate * AdvReac Severe Hallucinati Verified 11/24/17 08:48 [From Percodan] ons Penicillins AdvReac Severe Itching Verified 11/24/17 08:48 Sulfa (Sulfonamide AdvReac Severe Itching Verified 11/24/17 08:48 Antibiotics) Review of Systems - Constitutional Constitutional: reports: Fatigue, Night sweats, Weight loss (7-10 lbs in the last 2 months, she is eating enough not to lose weight by calorie count) - Eyes Eyes: denies: Pain, Irritation, Amaurosis, Blurred vision - Ears, Nose & Throat Ears, Nose & Throat: denies: Ear pain, Hearing loss, Hearing aids, Tinnitus, Vertigo, Sore throat, Hoarseness - Cardiovascular Cariovascular: reports: Palpitations (in the past, not tonight), Chest pain (had been working in her garden and using left arm a lot 09/2017. Developed pain in left shoulder and left arm and next day left side of chest so she came ot ER and had EKG/cardiac markers that were unremarkable.). denies: Lightheadedness, Syncope, Exertional dyspnea, Decr. exercise tolerance - Respiratory Respiratory: denies: Cough, Sputum production, Wheezing, SOB at rest, SOB with exertion - Gastrointestinal Gastrointestinal: reports: Diarrhea, Poor appetite. denies: Abdominal pain, Abdominal distention, Change in bowel habits, Rectal bleeding, Black stools, Bloody stools - Genitourinary Genitourinary: denies: Dysuria, Frequency, Urgency, Hematuria, Flank pain, Noct uria - Musculoskeletal Musculoskeletal: reports: Back pain, Other (sciatica). denies: Gout - Integumentary Integumentary: reports: Rash (ezcema see Derm), Pruritis. denies: Lesions, Dryness - Neurological Neurological: denies: General weakness, Focal weakness, Headache, Dizziness, Memory problems - Psychiatric Psychiatric: reports: Anxiety (increased recently due to lawsuits in her neighborhood) - Endocrine Endocrine: denies: Polyuria, Polydypsia, Polyphagia - Hematologic/Lymphatic Hematologic/Lymphatic: denies: Anemia, Bruising, Petechiae Prior Level of Functionality: Independent with ADL's, can drive, cleans house, helps pays bills Exam - Vital Signs Reviewed Vital Signs: Yes Vital Signs: Vital Signs x48h Temp Pulse Resp BP Pulse Ox 12/16/18 02:32 80 16 135/69 H 97 10/22/19 01:04 83 18 149/99 H 96 12/16/18 00:53 36.8 C 87 18 156/76 H 95 - Physical Exam General Appearance: positive: Severe distress (from pain in hip every time she m oves), Other (sleepy, pale,thin, malnourished appearing white female who tries to lick her dry lips, at the bedside) Eyes Bilateral: positive: PERRL, EOMI ENT: positive: Dry mucous membranes Neck: positive: No JVD. negative: Lymphadenopathy (R), Lymphadenopathy (L), Stiff neck, Carotid bruit Respiratory: negative: Chest non-tender, Wheezes, Rales, Rhonchi Cardiovascular: positive: Systolic murmur. negative: Regular rate & rhythm, Gallop/S4, Friction rub Peripheral Pulses: positive: 1+ Abdomen: positive: Non-tender, No organomegaly, Nml bowel sounds, No distention Skin: positive: Warm, Dry, Pallor Extremities: positive: Other (right leg shortened adn externally rotated, cannot move right hip) Neurologic/Psychiatric: positive: Oriented x3, CN's nml (2-12), Motor nml, Sensation nml Conclusion/Plan - Problem List (1) Hip fracture, right Conclusion/Plan: she doesn't remember how she fell, only that she found her lself on the floor. Now with hip pain and and films that reveal a right femoral neck fracture. Plan: Inpatient admit Ortho consult keep NPO in case of surgery today Qualifiers: Encounter type: initial encounter Fracture type: closed Qualified Code(s): S72.001A - Fracture of unspecified part of neck of right femur, initial encounter for closed fracture (2) Pre-op evaluation Conclusion/Plan: NSQIP score is 6.8%. She has no hx of afib, valvular heart disease, renal failure, recent AL but does have hx of 5 beats of Vtach and a history that doesn't explain how she fell to break her hip (3) HTN (hypertension) Conclusion/Plan: resume her usual meds after surgery. She will receive her betablocker. Qualifiers: Hypertension type: essential hypertension Qualified Code(s): I10 - Essential (primary) hypertension (4) Osteoporosis Conclusion/Plan: in reviewing her med list, she is not on calcium or vit D. I would recommend starting vit D after surgery, and in 4-6 weeks start reclast or prolia so as not to interfere with bone remodeling after surgical hip repair Qualifiers: Osteoporosis type: age-related Encounter type: sequela (5) Abnormal loss of weight Conclusion/Plan: unintentional. Calorie count for 3 days is nml. PMH: anxiety and UC but scope is negative. On exam hypothermic and with early macrocytic anemia. Her PCP is aware and will start work up. (6) Macrocytic anemia Conclusion/Plan: mild. will order anemia panel. - Lab Results Lab results reviewed: Yes Fish Bones: 12/16/18 01:00 12/16/18 01:00 - Diagnostic Imaging Results Diagnostic Imaging Results: positive: Final report reviewed Diagnostic Imaging Results Comments: RIGHT HIP RADIOGRAPHY EXAM DATE: 12/16/2018 01:45 AM. CLINICAL HISTORY: GLF, rotated and shortened. COMPARISON: None. TECHNIQUE: 2 views. FINDINGS: Bones: There is a right femoral neck fracture with angulation of the fracture fragments. Joints: The left hip is intact per the ring of the pelvis is intact. Soft Tissues: Normal. No soft tissue swelling. Chest x-ray: The lungs are clear. The heart and jairo were normal. No pleural effusions. IMPRESSION: 1. Angulated right femoral neck fracture. RIGHT HIP CT WITHOUT CONTRAST EXAM DATE: 12/16/2018 03:31 AM. CLINICAL HISTORY: Right hip fracture. COMPARISON: HIP W/PELVIS 2-3V RT 12/16/2018 1:16 AM. TECHNIQUE: Thin-section axial images were acquired of the hip without contrast. Post-processing: Coronal and sagittal reformats. Other: None. In accordance with CT protocol optimization, one or more of the following dose reduction techniques were utilized for this exam: automated exposure control, adjustment of mA and/or KV based on patient size, or use of iterative reconstructive technique. FINDINGS: Acute right femoral neck fracture with varus angulation and mild displacement. Joints: Mild to moderate right hip joint space narrowing. No subluxation or dislocation. Musculature: Normal for age. No fatty atrophy. Other: The visualized intraperitoneal structures are unremarkable. There is small hematoma within subcutaneous fat along lateral aspect of right proximal thigh. IMPRESSION: 1. Acute right femoral neck fracture with varus angulation and mild displacement. No hip dislocation. 2. Small hematoma along right proximal thigh laterally. CT HEAD EXAM DATE: 12/16/2018 01:42 AM. CLINICAL HISTORY: Loss of consciousness, fall. COMPARISON: BRAIN W/O 12/05/2012 2:44 PM. TECHNIQUE: Multiaxial CT images were obtained from the foramen magnum to the vertex. Reformats: Sagittal and coronal. IV contrast: None. In accordance with CT protocol optimization, one or more of the following dose reduction techniques were utilized for this exam: automated exposure control, adjustment of mA and/or KV based on patient size, or use of iterative reconstructive technique. FINDINGS: Parenchyma: No intraparenchymal hemorrhage. No evidence of mass, midline shift, or CT findings of infarction. Fine-white differentiation is distinct. Mild small vessel disease. Extraaxial Spaces: Normal for age. No subdural or epidural collections identified. Ventricles: Normal in size and position. Sinuses and Orbits: Imaged paranasal sinuses, orbits, and mastoids show no significant abnormality. Bones: No evidence of fracture or calvarial defect. Other: None. IMPRESSION: 1. No acute intracranial abnormality. - EKG Results EKG Interpreted Independently: No EKG Comparison: No prior EKG EKG Findings: NSR with no PVC or PAC. Nml R wave progression and no STTW changes. Core Measures - Anticipated LOS I expect patient to be DC'd or transferred within 96 hours.: Yes - DVT/VTE - Prophylaxis VTE/DVT Device ordered at admit?: Yes
--- NOTE | 2018-12-16 03:58 | CT Report ---
Reason: right hip fracture Procedure Date: 12/16/2018 Accession Number: [id number] / [id number] Procedure: CT - LOWER EXTREMITY WO - RT CPT Code: FULL RESULT: EXAM: RIGHT HIP CT WITHOUT CONTRAST EXAM DATE: 12/16/2018 03:31 AM. CLINICAL HISTORY: Right hip fracture. COMPARISON: HIP W/PELVIS 2-3V RT 12/16/2018 1:16 AM. TECHNIQUE: Thin-section axial images were acquired of the hip without contrast. Post-processing: Coronal and sagittal reformats. Other: None. In accordance with CT protocol optimization, one or more of the following dose reduction techniques were utilized for this exam: automated exposure control, adjustment of mA and/or KV based on patient size, or use of iterative reconstructive technique. FINDINGS: Acute right femoral neck fracture with varus angulation and mild displacement. Joints: Mild to moderate right hip joint space narrowing. No subluxation or dislocation. Musculature: Normal for age. No fatty atrophy. Other: The visualized intraperitoneal structures are unremarkable. There is small hematoma within subcutaneous fat along lateral aspect of right proximal thigh. IMPRESSION: 1. Acute right femoral neck fracture with varus angulation and mild displacement. No hip dislocation. 2. Small hematoma along right proximal thigh laterally. RADIA
[2018-12-16] MEDS: SODIUM CHLORIDE 0.9% 1,000 ML IV SCH ×3 (04:11→15:01)
[2018-12-16] MEDS: SODIUM CHLORIDE FLUSH 0.9% 10 ML SYRINGE IVP PRN (04:12)
[2018-12-16] MEDS: HYDROmorphone 1 MG/ML CARPUJECT IVP PRN ×4 (06:01→23:59)
[2018-12-16 08:15] LABS: ABSOLUTE RETICS # AUTO 0.036 10^6/uL (0.020-0.110); RED BLOOD COUNT 3.21 10^6/uL (4.20-5.40)
[2018-12-16 08:17] LABS: % IRON SATURATION 15 % (20-50); IRON 52 ug/dL (28-170); TOTAL IRON BINDING CAPACITY 344 ug/dL (250-450); TRANSFERRIN 246 mg/dL (192-382)
[2018-12-16 08:40] LABS: FERRITIN 331.3 ng/mL (11.0-306.8)
[2018-12-16] MEDS ORDERED: ceFAZolin 2 GM in SODIUM CHLORIDE 0.9% 100ML 100 ML IV SCH (09:00)
[2018-12-16] MEDS: POLYETHYLENE GLYCOL 3350 17 GM PACKET PO SCH (09:03)
--- NOTE | 2018-12-16 09:05 | CONSULTATION NOTE ---
DATE OF SERVICE: 12/16/2018 Physician: Stanislav Cain MD REFERRING PHYSICIAN: Eduardo Saini of the Emergency Room Department. CHIEF COMPLAINT: "My right hip hurts." HISTORY OF PRESENT ILLNESS: Patient is a 73-year-old, very active female who plays tennis and has had very little problems with her hips prior to this injury who presents to the emergency room now having had a fall and landing on the right side. It is unclear to the mechanism of injury or exactly how the fall occurred. Apparently had been in bed and then must have blackout and found herself on the floor in her bedroom. She was unable to stand or weight bear because of pain to her hip. She was taken to the emergency room here at [facility] where her x-rays have shown a displaced right subcapital hip fracture. 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 The patient denies prior falls or syncopal spells. No other injuries have been noted with this hip fracture. PHYSICAL EXAMINATION: The patient's right hip has painful range of motion. There is tenderness primarily in the anterior groin right side. Moves her toes on command. Sensation intact. Good capillary filling noted. ASSESSMENT: Displaced and angulated closed right subcapital hip fracture, in this very active 73-year-old woman. Although her x-rays suggest a moderate amount of osteoarthritis, she clinically has had very few symptoms and is still very functional. PLAN: Discussed with her treatment options. She wishes to proceed with a cementless bipolar hip endoprosthesis, which is scheduled for later today. Risks and benefits of surgery including anesthesia risks, blood loss, blood clots, infection, nerve damage, recurrent dislocations, etc., were explained to her. Her questions were answered. Consent was signed. She wishes to proceed with surgery as indicated above. The leg has been marked. TD: 12/16/2018 08:23 BLAIR
--- NOTE | 2018-12-16 11:02 | ANESTHESIA ---
Pre-Anesthesia VS, & Labs - Diagnosis R hip fx - Procedure R hip hemiarthroplasty Vital Signs: Temp Pulse Resp BP Pulse Ox 36.4 C L 74 16 148/57 H 100 12/16/18 08:00 12/16/18 08:00 12/16/18 08:00 12/16/18 08:00 12/16/18 08:00 Height 5 ft 2 in Weight (kg) 52.5 kg Body Mass Index 21.2 - NPO >8 hours - Is Patient ?: No - Lab Results Current Lab Results: Laboratory Tests 12/16/18 07:35: Lactate Dehydrogenase 216 12/16/18 07:35: Ferritin 331.3 H, Vitamin B12 278 12/16/18 07:35: Iron 52, TIBC 344, % Saturation 15 L, Transferrin 246 12/16/18 07:35: RBC 3.21 L, Reticulocyte % (Auto) 1.13, Absolute Retic 0.036 12/16/18 01:00: Sodium 142, Potassium 3.8, Chloride 106, Carbon Dioxide 25, Anion Gap 11.0, BUN 27 H, Creatinine 1.0, Estimated GFR (MDRD) 54 L, Glucose 106 H, Calcium 8.7, Total Bilirubin 0.6, AST 33, ALT 34, Alkaline Phosphatase 87, Total Protein 7.7, Albumin 4.3, Globulin 3.4, Albumin/Globulin Ratio 1.3, Lipase 86 H 12/16/18 01:00: WBC 7.5, RBC 3.44 L, Hgb 11.1 L, Hct 34.3 L, MCV 99.7 H, MCH 32.3 H, MCHC 32.4, RDW 11.9 L, Plt Count 280, MPV 8.7, Neut # (Auto) 3.8, Lymph # (Auto) 2.2, [place] # (Auto) 0.6, Eos # (Auto) 0.8 H, Baso # (Auto) 0.1, Absolute Nucleated RBC 0.00, Nucleated RBC % 0.0 12/16/18 01:00: Lactic Acid 1.9 Lab results reviewed: Yes Fish Bones: 12/16/18 01:00 12/16/18 01:00 Home Medications and Allergies Active Medications Hydromorphone HCl (Dilaudid Inj Carp) 1 mg IVP Q2HR PRN PRN Reason: Pain 8 to 10 Last Admin: 12/16/18 10:08 Dose: 1 mg Sodium Chloride (Normal Saline 0.9%) 1,000 mls @ 100 mls/hr IV .Q10H YONY Last Admin: 12/16/18 04:11 Dose: 100 mls/hr Cefazolin Sodium 2 gm/ Sodium (Chloride) 100 mls @ 200 mls/hr IV ONCE YONY Stop: 12/16/18 23:00 Ondansetron HCl (Zofran Inj) 4 mg IVP Q6HR PRN PRN Reason: Nausea / Vomiting Last Admin: 12/16/18 05:23 Dose: 4 mg Ondansetron HCl (Zofran Odt) 4 mg TL Q6HR PRN PRN Reason: Nausea / Vomiting Polyethylene Glycol (Miralax) 17 gm PO DAILY YONY Last Admin: 12/16/18 09:03 Dose: Not Given Sodium Chloride (Normal Saline Flush 0.9%) 10 ml IVP PRN PRN PRN Reason: NEEDED PER PROVIDER ORDERS Last Admin: 12/16/18 04:12 Dose: 10 ml Sodium Chloride (Normal Saline Flush 0.9%) 10 ml IVP 0100,0900,1700 [facility] Aspirin [Aspir-Low] 81 mg PO DAILY 05/31/13 Metoprolol Tartrate [Lopressor] 0 mg PO BID 05/31/13 Pravastatin [Pravachol] 11/24/17 Allergies/Adverse Reactions: Allergies Allergy/AdvReac Type Severity Reaction Status Date / Time oxycodone HCl * AdvReac Severe Hallucinati Verified 11/24/17 08:48 [From Percodan] ons oxycodone terephthalate * AdvReac Severe Hallucinati Verified 11/24/17 08:48 [From Percodan] ons Penicillins AdvReac Severe Itching Verified 11/24/17 08:48 Sulfa (Sulfonamide AdvReac Severe Itching Verified 11/24/17 08:48 Antibiotics) Anes History & Medical History - Anesthetic History Anesthesia Complications: reports: No previous complications Family history of Anesthesia Complications: Denies Family history of Malignant Hyperthermia: Denies - Medical History Cardiovascular: reports: Hypertension, High cholesterol, Arrhythmia Pulmonary: reports: None Gastrointestinal: reports: Ulcerative colitis Urinary: reports: Incontinence Neuro: reports: Other (lumbar radiculopathy) Musculoskeletal: reports: None Endocrine/Autoimmune: reports: None Blood Disorders: reports: None Skin: reports: None Smoking Status: Never smoker - Surgical History General: Appendectomy, Colonoscopy Orthopedic: Other (right wrist fracture with repair 1978) Exam General: Alert, Oriented x3, Cooperative Dental: WNL Mouth Openin Fingerbreadth Neck Mobility: Normal Mallampati classification: II Thyromental Distance: greater than 6 cm Respiratory: Lungs clear, Normal breath sounds, No respiratory distress Cardiovascular: Regular rate, Other (hx of rapid heart rate, resolved in ER without intervention per pt and spouse, no admit. Strees test and ECHO completed at later date. All unremarkable) Neurological: Normal speech Mental/Cognitive Status: Alert/Oriented X3, Normal for patient Cognitive Status: Within normal limits Plan Anesthesia Type: General, Fascia Iliaca Block Regional Block: Per Surgeon's request for Post Op pain control Consent for Procedure(s) Verified and Reviewed: Yes Code Status: Attempt Resuscitation ASA classification: 2-Mild systemic disease Is this case an emergency?: No
[2018-12-16] MEDS ORDERED: BUPIVACAINE 0.25% PF 30 ML VIAL ONE (11:16)
[2018-12-16] MEDS ORDERED: LACTATED RINGERS 1,000 ML IV ONE ×3 (11:29→12:00)
[2018-12-16] MEDS ORDERED: BUPIVACAINE 0.25% PF 30 ML VIAL SUBQ ONE ×2 (12:24→13:33)
[2018-12-16] MEDS: SODIUM CHLORIDE FLUSH 0.9% 10 ML SYRINGE IVP SCH ×5 (13:43→23:37)
[2018-12-16] MEDS ORDERED: SENNA 8.6 MG TABLET PO PRN (13:54)
[2018-12-16] MEDS ORDERED: PROCHLORPERAZINE 10 MG/2 ML VIAL IVP PRN (13:54)
[2018-12-16] MEDS ORDERED: DOCUSATE SODIUM 100 MG CAPSULE PO PRN (13:54)
--- NOTE | 2018-12-16 14:12 | OPERATIVE REPORT ---
Operative Report - General Admit Date: 12/16/18 Procedure Date: 12/16/18 Planned Procedure: Cementless right bipolar hip endoprosthesis Pre-Op Diagnosis: Angulated, displaced, cl;osed right subcapital hip fracture Procedure Performed: Cementless right bipolar hip endoprosthesis Post Op Diagnosis: Same - Procedure Note Primary Surgeon: Van Cain MD Anesthesia Provider: Tyson Sy CRNA Anesthesia Technique: General ET tube Pathology: Femoral head fragment sent to pathology IV Fluids (mL): 1,100 Estimated Blood Loss (mL): 500 Complications: None
--- NOTE | 2018-12-16 14:41 | OPERATIVE REPORT ---
DATE OF SERVICE: 12/16/2018 Physician: Stanislav Cain MD PREOPERATIVE DIAGNOSIS: Angulated, displaced, closed, right subcapital hip fracture. POSTOPERATIVE DIAGNOSIS: Angulated, displaced, closed, right subcapital hip fracture. PROCEDURE PERFORMED: Cementless Press-fit right hip bipolar endoprosthesis. SURGEON: Stanislav Cain MD INTERNATIONAL NURSE: None. ANESTHESIA: General. DESCRIPTION OF PROCEDURE: Patient was taken to the operating room in the late morning of 12/16/2018, where she was placed under general anesthetic without any complications. She was then positioned onto the fracture table in the lateral decubitus position with the right side up and held in place on the pegboard. Once secured, we then prepped and draped the hip in the usual fashion for our procedure. Making a curvilinear incision centered over the greater trochanter, we dissected down to the proximal femur. Hemostasis was obtained using electrocautery as we approached the hip joint. Charnley retractor was used to retract the full- thickness skin flaps to reveal the joint. Electrocautery was used to detach the short external rotators and again hemostasis obtained with electrocautery. At this point, we came down onto the femoral neck portion of the fracture. Using the osteotome template, we osteotomized the proximal femur approximately 1 fingerbreadth proximal to the lesser trochanter. Bony fragments were removed. We then did a T-type incision in the capsule to retract the soft tissue capsule. Holding this in place with stay stitches of 2-0 Vicryl suture. We could then identify the femoral head. Combination of corkscrew extractor and curved tenaculum clamps were used to essentially remove the femoral head. The femoral head gauge was then utilized, and we determined a 45 mm head would be trialed. We cleared the acetabulum of soft tissue using a rongeur, removing the remnant of the ligamentum teres; irrigated the acetabulum at this point. We then placed the trial prosthesis in. It gave free rotation of the trial within the acetabulum. It was decided we would use a 45 mm outside diameter bipolar component. Next we then directed our attention to the proximal femur. Using a box osteotome, we widened the opening into the femoral shaft laterally. We then used the rigid reamers and sequentially reamed up from a 9 mm to a 12 mm rigid reamer. We had good femoral bony contact; and we decided that this was likely to be the size of our prosthesis. We then proceeded to broach the proximal femur starting with a #10 broach, then the 11, then, finally a 12 broach. This gave us a good Press-fit, as we were approaching the proximal femoral canal. Able to bring this down to the proper level with this broach. We then went ahead and trialed our prosthesis using a #5 standard offset, 0 neck length with a 45 mm outside diameter prosthesis. This was placed onto our broach after the handle was released. We then reduced the hip easily. The hip joint seemed stable. We were able to easily extend the hip, and it was stable in extension and external rotation. No pistoning was noted as we put axial traction on the leg. The leg was stable in sleep position. Finally, with the hip flexed at 90 degrees neutral abduction, we were able to internally rotate to approximately 60 degrees before there was some subluxation of the femoral head component in the acetabulum. This was felt to be stable. These would be the components that would be in place from our permanent prosthesis set. We then removed the trial prostheses and the broach from the proximal femur. We then irrigated the acetabulum, the wound and the proximal femur with pulse lavage. When ready, we then proceeded to insert the permanent bipolar prostheses in place. A 12 femoral stem was placed with a +0 neck standard offset bipolar component. This was placed in the usual fashion. We then reduced the hip with care being to not have any soft tissue interposition with our reduction. Satisfied with this, we then checked on the stability of the hip. The leg seemed to be about the same in length with the opposite side clinically. We noted no pistoning with longitudinal traction on the leg. The leg was stable in full extension and external rotation. Sleep position was stable. Finally, with the hip flexed to 90 degrees and 0 abduction, we were able to internally rotate the hip to approximately 60 degrees before early subluxation of the hip was noted. This was felt to be stable. We then proceeded to irrigate the wound out thoroughly with saline again. We reattached the external rotators and the hip capsulotomy using our stay stitch to approximate to the posterior greater trochanteric region. This was with a 2- 0 Vicryl stitch. A 2-0 Vicryl stitch also used to reattach the external rotators. Finally, 0 Vicryl in a baseball-type stitch was used to reapproximate the fascia antonio incision. Finally the subcutaneous tissues were reapproximated with buried simple stitches of 2-0 Vicryl suture. We then closed the skin wound with pavel; 10 mL of 0.25% Marcaine without epinephrine was then injected for incisional local anesthesia. We then washed the wound and dressed it with Xeroform gauze, 4 x 4's, ABD, and foam tape. Patient was then awoken from her anesthetic with a hip abductor pillow in place. Taken to recovery room in satisfactory condition. ESTIMATED BLOOD LOSS: 500 mL REPLACEMENT: 1100 mL of crystalloid. INTRAOPERATIVE COMPLICATIONS: None. PLAN: Patient will be started on rehab beginning tomorrow. May go weightbearing as tolerated on this extremity. Total hip precautions will be observed. TD: 12/16/2018 14:16 MTDTrung
--- NOTE | 2018-12-16 16:00 | XRAY Report ---
Reason: post op hip endoprosthesis Procedure Date: 12/16/2018 Accession Number: [id number] / [id number] Procedure: XR - Pelvis 1 View CPT Code: FULL RESULT: EXAM: PELVIS RADIOGRAPHY EXAM DATE: 12/16/2018 02:26 PM. CLINICAL HISTORY: Post op hip endoprosthesis. COMPARISON: HIP W/PELVIS 2-3V RT 12/16/2018 1:16 AM. TECHNIQUE: 1 view. FINDINGS: Bones: Normal. No fracture or bone lesion. Joints: Total right hip arthroplasty. Soft Tissues: Postsurgical changes along the lateral aspect of the right hip. IMPRESSION: Total right hip arthroplasty. RADIA
[2018-12-16] MEDS: ASPIRIN 325 MG TABLET PO SCH (18:58)
[2018-12-16] MEDS ORDERED: LIDOCAINE PATCH 5% TOP PRN (19:07)
[2018-12-16] MEDS ORDERED: MECLIZINE 12.5 MG TABLET PO PRN (19:07)
[2018-12-16] MEDS: METOPROLOL TARTRATE 25 MG TABLET PO SCH (22:02)
[2018-12-16] MEDS: PRAVASTATIN 40 MG TABLET PO SCH (22:02)
[2018-12-16] MEDS: ceFAZolin 2 GM in SODIUM CHLORIDE 0.9% 100ML 100 ML IV SCH (22:03)
[2018-12-16] MEDS: ACETAMINOPHEN 325 MG TABLET PO PRN (22:06)
[2018-12-17] MEDS: SODIUM CHLORIDE 0.9% 1,000 ML IV SCH (03:02)
[2018-12-17 05:39] LABS: CALCIUM 7.5 mg/dL (8.5-10.3); CREATININE 0.7 mg/dL (0.4-1.0); MAGNESIUM 1.7 mg/dL (1.7-2.8)
[2018-12-17] MEDS: ACETAMINOPHEN 325 MG TABLET PO PRN (05:51)
[2018-12-17] MEDS: ceFAZolin 2 GM in SODIUM CHLORIDE 0.9% 100ML 100 ML IV SCH (05:51)
[2018-12-17] MEDS ORDERED: LORazepam 2 MG/ML VIAL IVP PRN (07:56)
[2018-12-17] MEDS ORDERED: HALOPERIDOL 5 MG/ML VIAL IVP ONE (07:59)
--- NOTE | 2018-12-17 08:04 | PROVIDER PROGRESS NOTE ---
Assessment/Plan - Problem List (1) Acute delirium Assessment/Plan: She got Dilaudid at about midnight and despite thet, was awake and confused until about 9 a.m.. She was seeing bugs. The RN reported that she was "shaking from anxiety". The RN also got a Hx of daily alcohol use: 1 glass of wine a day. When I spoke to the patient and at bedside, I learned that she has up to 3 drinks of wine daily. Her Allergy list contains allergic to Oxycodone which gave her hallucinations in the past. Will order Haldol 1 mg iv prn, for "Sundowning". Will stop Dilaudid. Will start a CIWA protocol and prn Ativan. Change iv saline to a Banana Bag iv. Check INR and follow CMP. (2) Hip fracture, right Qualifiers: Encounter type: initial encounter Fracture type: closed Qualified Code(s): S72.001A - Fracture of unspecified part of neck of right femur, initial encounter for closed fracture Assessment/Plan: POD #1. She does not use any narcotics usually, and has had hallucinations after Percodan and possibly after the Dilaudid today (see #1). Will treat pain with scheduled Tylenol po alternating with Toradol iv. PT to start today. (3) Fall at home Assessment/Plan: The circumstance was unclear and therefore may have involved alcohol in toxication, sudden arrhythmia (since she has had VT documented on a ZioPatch several mos ago), orthostasis from anemia, dizziness/vertigo, or gait abnormality (also possibly from alcohol use and alcoholic cerebellar ataxia). Telemetry was ordered last evening, to watch for arrhythmias. Banana Bag iv ordered containing Thiamine. CIWA protocol also ordered today. PT may have to be postponed. (4) Osteoporosis Qualifiers: Osteoporosis type: age-related Encounter type: sequela Assessment/Plan: Vitamin D3 will be started post-op and in the future she may need other tx. (5) HTN (hypertension) Qualifiers: Hypertension type: essential hypertension Qualified Code(s): I10 - Essential (primary) hypertension Assessment/Plan: Her home management of Metoprolol was resumed last evening. Today, the patient a nd described that the Metoprolol ,caused anxiety and tremulousness and it was stopped and Lisinopril was started. BP may be elevated if she is going into alcohol withdrawal. Will resume her Lisinopril (starting tomorrow a.m., since she already got the Metoprolol this morning). (6) Alcohol abuse Assessment/Plan: She admitted to daily wine and the described that she has 2-3 drinks every day. Will order Librium to prevent withdrawal, start a CIWA protocol with prn Ativan. Banana bag for 1 day, then po Thiamine tomorrow. LAbs are pending for B12 and Folate levels, given her macrocytosis. (7) Anemia Qualifiers: Other causes of anemia: acute posthemorrhagic Assessment/Plan: She had 500 cc EBL yesterday in the OR, during hip surgery. Will start po Iron replacement. Follow CBC daily. (8) Macrocytic anemia Assessment/Plan: This may be a sign of alcohol abuse. - Current Meds Current Meds: Current Medications Generic Name Dose Route Start Last Admin Trade Name Freq PRN Reason Stop Dose Admin Acetaminophen 650 - 975 mg 12/16/18 13:54 12/17/18 05:51 Tylenol PO 650 mg Q4HR PRN Administration PAIN Aspirin 325 mg 12/16/18 17:00 12/16/18 18:58 Catherine PO 325 mg BIDWM YONY Administration Metoprolol Tartrate 25 mg 12/16/18 21:00 12/16/18 22:02 Lopressor PO 25 mg BID YONY Administration Polyethylene Glycol 17 gm 12/16/18 09:00 12/16/18 09:03 Miralax PO Not Given DAILY YONY Pravastatin Sodium 40 mg 12/16/18 21:00 12/16/18 22:02 Pravachol PO 40 mg QPM YONY Administration Sodium Chloride 10 ml 12/16/18 02:50 12/16/18 04:12 Normal Saline Flush 0.9% IVP 10 ml PRN PRN Administration NEEDED PER PROVIDER ORDERS Sodium Chloride 10 ml 12/16/18 09:00 12/17/18 00:00 Normal Saline Flush 0.9% IVP 10 ml 0100,0900,1700 YONY Administration Sodium Chloride 10 ml 12/16/18 17:00 12/16/18 23:37 Normal Saline Flush 0.9% IVP Not Given 0100,0900,1700 YONY - Lab Result Fish Bone Diagrams: 12/17/18 08:09 12/17/18 05:10 - Additional Planning My Orders: My Active Orders 12/16/18 08:24 Bubsy Insertion [RC] QSHIFT 12/16/18 16:08 Telemetry- [RC] Q4HR 12/16/18 19:07 Lidocaine Patch 5% [Lidoderm Patch] 1 patch TOP DAILY PRN Meclizine [Antivert] 25 mg PO Q6H PRN 12/16/18 21:00 Metoprolol Tartrate [Lopressor] 25 mg PO BID Pravastatin [Pravachol] 40 mg PO QPM 12/17/18 CBC - COMP BLD CT W/AUTO DIFF [HEME] Routine 12/17/18 07:56 CIWA - AR Score Card [RC] Routine Routine Neuro Check [RC] Routine Routine PARTIAL THROMBOPLASTIN TIME [COAG] Routine PT WITH INR [COAG] Routine LORazepam INJ [Ativan Inj (Vial)] 2 mg IVP Q30M PRN 12/17/18 07:57 UA, MICROSCOPIC & CULT IF [URIN] Routine 12/17/18 07:59 Haloperidol Inj [Haldol Inj] 1 mg IVP ONCE ONE 12/17/18 09:00 Multivitamin [Infuvite] 10 ml Thiamine Inj [Vitamin B-1 Inj] 100 mg Folic Acid Inj 1 mg Sodium Chloride 0.9% [Normal Saline 0.9%] 1,000 ml IV DAILY 12/18/18 05:00 CBC - COMP BLD CT W/AUTO DIFF [HEME] DAILYLAB COMPREHENSIVE METABOLIC PANEL [CHEM] DAILYLAB Subjective - Subjective Patient Reports: Other (She asked me twice how her pain will be controlled and was told twice including that she was an inpatient.) Objective Vital Signs: Vital Signs - 24 hr 12/16/18 12/16/18 12/16/18 08:00 14:00 14:05 Temperature 36.4 C L Heart Rate 78 76 Heart Rate [ 74 Brachial] Respiratory 16 15 15 Rate Blood Pressure 123/88 H 121/77 Blood Pressure [Left Brachial artery] Blood Pressure 148/57 H [Right Brachial artery] O2 Saturation 100 100 100 12/16/18 12/16/18 12/16/18 14:10 14:20 14:30 Temperature 36.0 C L 36.1 C L Heart Rate 75 72 73 Heart Rate [ Brachial] Respiratory 15 15 18 Rate Blood Pressure 137/60 H 136/66 H 126/99 H Blood Pressure [Left Brachial artery] Blood Pressure [Right Brachial artery] O2 Saturation 100 93 95 12/16/18 12/16/18 12/16/18 14:40 14:51 14:55 Temperature 36.8 C 36.3 C L Heart Rate 70 Heart Rate [ 76 Brachial] Respiratory 18 16 Rate Blood Pressure 147/60 H Blood Pressure 93/73 140/76 H [Left Brachial artery] Blood Pressure [Right Brachial artery] O2 Saturation 100 100 12/16/18 12/16/18 12/16/18 15:04 15:31 17:26 Temperature 36.3 C L 36.4 C L Heart Rate Heart Rate [ 67 79 87 Brachial] Respiratory 16 16 16 Rate Blood Pressure Blood Pressure 150/72 H [Left Brachial artery] Blood Pressure 157/64 H 150/54 H [Right Brachial artery] O2 Saturation 99 95 94 12/16/18 12/16/18 12/16/18 20:34 22:02 23:55 Temperature 37.0 C 36.8 C Heart Rate Heart Rate [ 89 68 Brachial] Respiratory 18 16 Rate Blood Pressure 149/61 H Blood Pressure [Left Brachial artery] Blood Pressure 137/50 H 148/56 H [Right Brachial artery] O2 Saturation 98 96 12/17/18 04:01 Temperature 36.8 C Heart Rate Heart Rate [ 95 Brachial] Respiratory 16 Rate Blood Pressure Blood Pressure [Left Brachial artery] Blood Pressure 157/61 H [Right Brachial artery] O2 Saturation 97 Oxygen O2 Source Room air Oxygen Flow Rate 2 I&O (Last 24 Hrs): Intake and Output Totals x24h 12/15/18 12/16/18 12/17/18 23:59 23:59 23:59 Intake Total 1200 1100 Output Total 1650 1150 Balance -450 -50 General: Alert HEENT: Mucous membr. moist/pink, Other (PAle) Neck: Supple, No JVD Neuro: Disoriented Cardiovascular: Regular rate Respiratory: No respiratory distress Abdomen: Soft Extremities: No edema - Results Results: Laboratory Results WBC 7.5 x10^3/uL (4.8-10.8) 12/16/18 01:00 RBC 3.21 10^6/uL (4.20-5.40) L 12/16/18 07:35 Hgb 11.1 g/dL (12.0-16.0) L 12/16/18 01:00 Hct 34.3 % (37.0-47.0) L 12/16/18 01:00 MCV 99.7 fL (81.0-99.0) H 12/16/18 01:00 MCH 32.3 pg (27.0-31.0) H 12/16/18 01:00 MCHC 32.4 g/dL (32.0-36.0) 12/16/18 01:00 RDW 11.9 % (12.0-15.0) L 12/16/18 01:00 Plt Count 280 10^3/uL (130-450) 12/16/18 01:00 MPV 8.7 fL (7.9-10.8) 12/16/18 01:00 Reticulocyte % (Auto) 1.13 % (0.5-2.3) 12/16/18 07:35 Neut # (Auto) 3.8 10^3/uL (1.5-6.6) 12/16/18 01:00 Lymph # (Auto) 2.2 10^3/uL (1.5-3.5) 12/16/18 01:00 [place]oca # (Auto) 0.6 10^3/uL (0.0-1.0) 12/16/18 01:00 Eos # (Auto) 0.8 10^3/uL (0.0-0.7) H 12/16/18 01:00 Baso # (Auto) 0.1 10^3/uL (0.0-0.1) 12/16/18 01:00 Absolute Nucleated RBC 0.00 x10^3/uL 12/16/18 01:00 Nucleated RBC % 0.0 /100WBC 12/16/18 01:00 Absolute Retic 0.036 10^6/uL (0.020-0.110) 12/16/18 07:35 Sodium 139 mmol/L (135-145) 12/17/18 05:10 Potassium 4.1 mmol/L (3.5-5.0) 12/17/18 05:10 Chloride 109 mmol/L (101-111) 12/17/18 05:10 Carbon Dioxide 23 mmol/L (21-32) 12/17/18 05:10 Anion Gap 7.0 (6-13) 12/17/18 05:10 BUN 13 mg/dL (6-20) 12/17/18 05:10 Creatinine 0.7 mg/dL (0.4-1.0) 12/17/18 05:10 Estimated GFR (MDRD) 82 (>89) L 12/17/18 05:10 Glucose 156 mg/dL (70-100) H 12/17/18 05:10 Lactic Acid 1.9 mmol/L (0.5-2.2) 12/16/18 01:00 Calcium 7.5 mg/dL (8.5-10.3) L 12/17/18 05:10 Magnesium 1.7 mg/dL (1.7-2.8) 12/17/18 05:10 Iron 52 ug/dL (28-170) 12/16/18 07:35 TIBC 344 ug/dL (250-450) 12/16/18 07:35 % Saturation 15 % (20-50) L 12/16/18 07:35 Transferrin 246 mg/dL (192-382) 12/16/18 07:35 Ferritin 331.3 ng/mL (11.0-306.8) H 12/16/18 07:35 Total Bilirubin 0.6 mg/dL (0.2-1.0) 12/16/18 01:00 AST 33 IU/L (10-42) 12/16/18 01:00 ALT 34 IU/L (10-60) 12/16/18 01:00 Alkaline Phosphatase 87 IU/L (42-121) 12/16/18 01:00 Lactate Dehydrogenase 216 IU/L (91-225) 12/16/18 07:35 Total Protein 7.7 g/dL (6.7-8.2) 12/16/18 01:00 Albumin 4.3 g/dL (3.2-5.5) 12/16/18 01:00 Globulin 3.4 g/dL (2.1-4.2) 12/16/18 01:00 Albumin/Globulin Ratio 1.3 (1.0-2.2) 12/16/18 01:00 Lipase 86 U/L (22-51) H 12/16/18 01:00 Vitamin B12 278 pg/mL (180-914) 12/16/18 07:35 - Procedures Procedures: Procedures EXCISION OF LARGE INTESTINE, ENDO, DIAGN (08/15/16)
[2018-12-17 08:34] LABS: BASOPHILS % (AUTO) 0.4 %; EOSINOPHILS # (AUTO) 0.1 10^3/uL (0.0-0.7); EOSINOPHILS % (AUTO) 1.5 %; HGB - HEMOGLOBIN 8.5 g/dL (12.0-16.0); LYMPHOCYTES # (AUTO) 0.9 10^3/uL (1.5-3.5); LYMPHOCYTES % (AUTO) 11.5 %; MEAN CORPUSCULAR HEMOGLOBIN 32.2 pg (27.0-31.0); MEAN CORPUSCULAR HGB CONC 32.3 g/dL (32.0-36.0); MEAN CORPUSCULAR VOLUME 99.6 fL (81.0-99.0); MEAN PLATELET VOLUME 9.1 fL (7.9-10.8); MONOCYTES % (AUTO) 12.8 %; NEUTROPHILS # (AUTO) 5.9 10^3/uL (1.5-6.6); NEUTROPHILS % (AUTO) 73.3 %; PLT - PLATELET COUNT 206 10^3/uL (130-450); RED BLOOD COUNT 2.64 10^6/uL (4.20-5.40); RED CELL DISTRIBUTION WIDTH 11.9 % (12.0-15.0); WHITE BLOOD COUNT 8.1 x10^3/uL (4.8-10.8)
[2018-12-17 08:52] LABS: PT - PROTHROMBIN TIME 11.8 secs (9.9-12.6)
[2018-12-17 08:59] LABS: PARTIAL THROMBOPLASTIN TIME 24.3 secs (24.9-33.3)
[2018-12-17] MEDS ORDERED: ASPIRIN EC 81 MG TABLET PO SCH (09:00)
[2018-12-17 09:14] LABS: DIFFERENTIAL COMMENT MANUAL=AUTO DIFF; PLATELET ESTIMATE, MANUAL NORMAL (130-450,000) (NORMAL); PLATELET MORPHOLOGY NORMAL APPEARANCE (NORMAL)
[2018-12-17] MEDS: POLYETHYLENE GLYCOL 3350 17 GM PACKET PO SCH (09:20)
[2018-12-17] MEDS: ASPIRIN 325 MG TABLET PO SCH ×2 (09:21→18:21)
[2018-12-17] MEDS: METOPROLOL TARTRATE 25 MG TABLET PO SCH (09:21)
[2018-12-17] MEDS: CHOLECALCIFEROL 1,000 UNIT TABLET PO SCH (09:22)
[2018-12-17] MEDS: MULTIVITAMIN 10 ML, THIAMINE INJ 100 MG, FOLIC ACID INJ 1 MG in SODIUM CHLORIDE 0.9% 1,... IV SCH (09:23)
[2018-12-17 10:07] LABS: BILIRUBIN,URINE NEGATIVE (NEGATIVE); GLUCOSE, URINE (UA) NEGATIVE (NEGATIVE); KETONES,URINE (UA) NEGATIVE (NEGATIVE); LEUKOCYTE ESTERASE, URINE TRACE (NEGATIVE); NITRITE,URINE NEGATIVE (NEGATIVE); OCCULT BLOOD,URINE TRACE-INTA (NEGATIVE); PROTEIN,URINE NEGATIVE (NEGATIVE); UROBILINOGEN,URINE 0.2 (NORMAL) E.U./dL (NORMAL)
[2018-12-17 10:13] LABS: CLARITY,URINE CLEAR (CLEAR)
[2018-12-17 10:27] LABS: BACTERIA,URINE Rare /HPF (None Seen); RBC,URINE 0-5 /HPF (0-5); SQUAMOUS EPITHELIAL CELL,UR RARE Squamous (<= Few)
[2018-12-17] MEDS ORDERED: LISINOPRIL 20 MG TABLET PO SCH (11:15)
[2018-12-17] MEDS ORDERED: HALOPERIDOL 5 MG/ML VIAL IVP PRN (11:40)
[2018-12-17] MEDS: MAGNESIUM OXIDE 400 MG TABLET PO SCH (12:22)
[2018-12-17] MEDS: ACETAMINOPHEN 325 MG TABLET PO SCH ×2 (12:23→18:21)
[2018-12-17] MEDS: SODIUM CHLORIDE FLUSH 0.9% 10 ML SYRINGE IVP SCH ×4 (12:31→18:21)
--- NOTE | 2018-12-17 12:38 | PROVIDER PROGRESS NOTE ---
Subjective - Prog Note Date Prog Note Date: 12/17/18 Prog Note Time: 12:36 - Subjective Pt reports feeling: Improved (Usual post op pain. Sitting at the bedside with help) Objective - Vital Signs/Intake & Output Vital Signs: Vital Signs x48h Temp Pulse Resp BP BP Pulse Ox 12/17/18 11:38 36.9 C 76 16 148/61 H 97 12/17/18 11:15 78 157/61 H 12/17/18 09:21 133/58 H 12/17/18 07:35 36.9 C 91 16 133/58 H 97 Intake & Output: Intake & Output 12/14/18 12/15/18 12/16/18 12/17/18 23:59 23:59 23:59 23:59 Intake Total 1200 2340 Output Total 1650 2550 Balance -450 -210 - Lab Results Fish Bones: 12/17/18 08:09 12/17/18 05:10 Other Labs: Lab Results x24hrs 12/17/18 12/17/18 12/17/18 Range/Units 09:20 08:09 08:09 WBC 8.1 (4.8-10.8) x10^3/uL RBC 2.64 L (4.20-5.40) 10^6/uL Hgb 8.5 L (12.0-16.0) g/dL Hct 26.3 L (37.0-47.0) % MCV 99.6 H (81.0-99.0) fL MCH 32.2 H (27.0-31.0) pg MCHC 32.3 (32.0-36.0) g/dL RDW 11.9 L (12.0-15.0) % Plt Count 206 (130-450) 10^3/uL MPV 9.1 (7.9-10.8) fL Neut # (Auto) 5.9 (1.5-6.6) 10^3/uL Lymph # (Auto) 0.9 L (1.5-3.5) 10^3/uL [place] # (Auto) 1.0 (0.0-1.0) 10^3/uL Eos # (Auto) 0.1 (0.0-0.7) 10^3/uL Baso # (Auto) 0.0 (0.0-0.1) 10^3/uL Absolute Nucleated RBC 0.00 x10^3/uL Band Neuts % (Manual) Not Reportable Abnorm Lymph % (Manual) Not Reportable Nucleated RBC % 0.0 /100WBC Neutrophils # (Manual) Not Reportable Lymphocytes # (Manual) Not Reportable Monocytes # (Manual) Not Reportable Eosinophils # (Manual) Not Reportable Basophils # (Manual) Not Reportable Differential Comment MANUAL=AUTO DIFF WBC Morphology NORMAL APPEARANCE (NORMAL) Platelet Estimate NORMAL (130-450,000) (NORMAL) Platelet Morphology NORMAL APPEARANCE (NORMAL) RBC Morph Micro Appear 1+ HYPOCHROMASIA (NORMAL) PT 11.8 (9.9-12.6) secs INR 1.0 (0.8-1.2) APTT 24.3 L (24.9-33.3) secs Sodium (135-145) mmol/L Potassium (3.5-5.0) mmol/L Chloride (101-111) mmol/L Carbon Dioxide (21-32) mmol/L Anion Gap (6-13) BUN (6-20) mg/dL Creatinine (0.4-1.0) mg/dL Estimated GFR (MDRD) (>89) Glucose (70-100) mg/dL Calcium (8.5-10.3) mg/dL Magnesium (1.7-2.8) mg/dL Folate (5.90 - >24.8) ng/mL Urine Color LIGHT YELLOW Urine Clarity CLEAR (CLEAR) Urine pH 6.0 (5.0-7.5) PH Ur Specific [place] <=1.005 (1.002-1.030) Urine Protein NEGATIVE (NEGATIVE) mg/dL Urine Glucose (UA) NEGATIVE (NEGATIVE) mg/dL Urine Ketones NEGATIVE (NEGATIVE) mg/dL Urine Occult Blood TRACE-INTA (NEGATIVE) Urine Nitrite NEGATIVE (NEGATIVE) Urine Bilirubin NEGATIVE (NEGATIVE) Urine Urobilinogen 0.2 (NORMAL) (NORMAL) E.U./dL Ur Leukocyte Esterase TRACE H (NEGATIVE) Urine RBC 0-5 (0-5) /HPF Urine WBC 0-3 (0-5) /HPF Ur Squamous Epith Cells RARE Squamous (<= Few) Urine Bacteria Rare (None Seen) /HPF Ur Microscopic Review INDICATED Urine Culture Comments INDICATED 12/17/18 12/17/18 Range/Units 05:10 05:10 WBC (4.8-10.8) x10^3/uL RBC (4.20-5.40) 10^6/uL Hgb (12.0-16.0) g/dL Hct (37.0-47.0) % MCV (81.0-99.0) fL MCH (27.0-31.0) pg MCHC (32.0-36.0) g/dL RDW (12.0-15.0) % Plt Count (130-450) 10^3/uL MPV (7.9-10.8) fL Neut # (Auto) (1.5-6.6) 10^3/uL Lymph # (Auto) (1.5-3.5) 10^3/uL [place] # (Auto) (0.0-1.0) 10^3/uL Eos # (Auto) (0.0-0.7) 10^3/uL Baso # (Auto) (0.0-0.1) 10^3/uL Absolute Nucleated RBC x10^3/uL Band Neuts % (Manual) Abnorm Lymph % (Manual) Nucleated RBC % /100WBC Neutrophils # (Manual) Lymphocytes # (Manual) Monocytes # (Manual) Eosinophils # (Manual) Basophils # (Manual) Differential Comment WBC Morphology (NORMAL) Platelet Estimate (NORMAL) Platelet Morphology (NORMAL) RBC Morph Micro Appear (NORMAL) PT (9.9-12.6) secs INR (0.8-1.2) APTT (24.9-33.3) secs Sodium 139 (135-145) mmol/L Potassium 4.1 (3.5-5.0) mmol/L Chloride 109 (101-111) mmol/L Carbon Dioxide 23 (21-32) mmol/L Anion Gap 7.0 (6-13) BUN 13 (6-20) mg/dL Creatinine 0.7 (0.4-1.0) mg/dL Estimated GFR (MDRD) 82 L (>89) Glucose 156 H (70-100) mg/dL Calcium 7.5 L (8.5-10.3) mg/dL Magnesium 1.7 (1.7-2.8) mg/dL Folate 8.40 (5.90 - >24.8) ng/mL Urine Color Urine Clarity (CLEAR) Urine pH (5.0-7.5) PH Ur Specific [place] (1.002-1.030) Urine Protein (NEGATIVE) mg/dL Urine Glucose (UA) (NEGATIVE) mg/dL Urine Ketones (NEGATIVE) mg/dL Urine Occult Blood (NEGATIVE) Urine Nitrite (NEGATIVE) Urine Bilirubin (NEGATIVE) Urine Urobilinogen (NORMAL) E.U./dL Ur Leukocyte Esterase (NEGATIVE) Urine RBC (0-5) /HPF Urine WBC (0-5) /HPF Ur Squamous Epith Cells (<= Few) Urine Bacteria (None Seen) /HPF Ur Microscopic Review Urine Culture Comments - Diagnostic Imaging Diagnostic Imaging Comments: XR showed hip prosthesis in place. No new fractures. Joint reduced - Other Results/Comments Other Results/Comments: EXAM: Dressing intact. Pain with hip motion. Moves toes well. Sensation intact. Good cap filling Assessment/Plan - Problem List (1) Hip fracture, right Impression: Satis post op PLAN: Mobilize as tolerated. Fe supplement. Try Vicodin for oral analgesic as needed. Qualifiers: Encounter type: initial encounter Fracture type: closed Qualified Code(s): S72.001A - Fracture of unspecified part of neck of right femur, initial encounter for closed fracture
[2018-12-17] MEDS ORDERED: HYDROcod/ACETAM 5/325 MG TABLET PO PRN (12:39)
[2018-12-17] MEDS: KETOROLAC 15 MG/ML VIAL IVP SCH ×2 (13:49→18:22)
[2018-12-17] MEDS: SODIUM CHLORIDE FLUSH 0.9% 10 ML SYRINGE IVP PRN (13:50)
[2018-12-17] MEDS ORDERED: DEXAMETHASONE 4 MG/ML VIAL IVP ONE (16:10)
[2018-12-17] MEDS ORDERED: fentaNYL 100 MCG/2 ML VIAL IVP ONE (16:10)
[2018-12-17] MEDS ORDERED: MIDAZOLAM 2 MG/2 ML VIAL IVP ONE (16:10)
[2018-12-17] MEDS: PRAVASTATIN 40 MG TABLET PO SCH ×2 (20:18→20:38)
[2018-12-17] MEDS: chlordiazePOXIDE 25 MG CAPSULE PO SCH ×2 (20:18→20:37)
[2018-12-18] MEDS: KETOROLAC 15 MG/ML VIAL IVP SCH ×4 (00:59→18:05)
[2018-12-18] MEDS: ACETAMINOPHEN 325 MG TABLET PO SCH ×4 (01:17→18:04)
[2018-12-18] MEDS: SODIUM CHLORIDE FLUSH 0.9% 10 ML SYRINGE IVP SCH ×6 (01:17→18:08)
[2018-12-18 05:04] LABS: BASOPHILS # (AUTO) 0.1 10^3/uL (0.0-0.1); BASOPHILS % (AUTO) 0.6 %; EOSINOPHILS % (AUTO) 0.4 %; LYMPHOCYTES # (AUTO) 1.8 10^3/uL (1.5-3.5); LYMPHOCYTES % (AUTO) 21.8 %; MEAN CORPUSCULAR HGB CONC 30.8 g/dL (32.0-36.0); MEAN CORPUSCULAR VOLUME 100.8 fL (81.0-99.0); MEAN PLATELET VOLUME 9.1 fL (7.9-10.8); MONOCYTES # (AUTO) 0.8 10^3/uL (0.0-1.0); MONOCYTES % (AUTO) 10.1 %; NEUTROPHILS # (AUTO) 5.5 10^3/uL (1.5-6.6); NEUTROPHILS % (AUTO) 66.5 %; PLT - PLATELET COUNT 201 10^3/uL (130-450); RED BLOOD COUNT 2.58 10^6/uL (4.20-5.40); RED CELL DISTRIBUTION WIDTH 12.1 % (12.0-15.0); WHITE BLOOD COUNT 8.2 x10^3/uL (4.8-10.8)
[2018-12-18 05:13] LABS: ALBUMIN 3.3 g/dL (3.2-5.5); ALBUMIN/GLOBULIN RATIO 1.2 (1.0-2.2); BILIRUBIN,TOTAL 0.8 mg/dL (0.2-1.0); CALCIUM 8.2 mg/dL (8.5-10.3); CREATININE 0.6 mg/dL (0.4-1.0); TOTAL PROTEIN 6.1 g/dL (6.7-8.2)
[2018-12-18] MEDS: SODIUM CHLORIDE FLUSH 0.9% 10 ML SYRINGE IVP PRN ×2 (06:53→20:28)
[2018-12-18] MEDS: POLYETHYLENE GLYCOL 3350 17 GM PACKET PO SCH (08:12)
[2018-12-18] MEDS: chlordiazePOXIDE 25 MG CAPSULE PO SCH ×2 (08:13→20:26)
[2018-12-18] MEDS: LISINOPRIL 20 MG TABLET PO SCH (08:14)
[2018-12-18] MEDS: ASPIRIN 325 MG TABLET PO SCH ×2 (08:14→16:02)
[2018-12-18] MEDS: CHOLECALCIFEROL 1,000 UNIT TABLET PO SCH (08:14)
[2018-12-18] MEDS: MAGNESIUM OXIDE 400 MG TABLET PO SCH (08:15)
[2018-12-18] MEDS ORDERED: CETIRIZINE 10 MG TABLET PO PRN (09:00)
[2018-12-18 09:11] LABS: HGB - HEMOGLOBIN 7.8 g/dL (12.0-16.0)
--- NOTE | 2018-12-18 09:17 | PROVIDER PROGRESS NOTE ---
Assessment/Plan - Problem List (1) Hip fracture, right Qualifiers: Encounter type: initial encounter Fracture type: closed Qualified Code(s): S72.001A - Fracture of unspecified part of neck of right femur, initial encounter for closed fracture Assessment/Plan: POD #2. She does not use any narcotics usually, and has had hallucinations after Percodan remotely and after the Dilaudid yesterday. Her pain is under good con trol with scheduled Tylenol po alternating with Toradol iv. PT started yesterday and she needed alot of cuing and reminders. PT did advise DCh to a SNF, the has requested Nomi, and I told SW. (2) Confusion Assessment/Plan: The told me, outside of the patient's room, that she has been progressively more forgetful over the past year. I pointed out to him that she needed alot of reminders when seen by PT and OT, which ws documented yesterday. Will check thyroid levels and vit D. 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 (3) Fall at home Assessment/Plan: The circumstance was unclear and therefore may have involved alcohol intoxication, sudden arrhythmia (since she has had VT documented on a ZioPatch several mos ago), orthostasis from anemia, her occasional dizziness/vertigo, or a gait abnormality (also possibly from alcohol use and alcoholic cerebellar ataxia). Echo completed and shows normal LVEF and normal valve function. Telemetry was ordered to watch for arrhythmias and none seen yet. Banana Bag iv ordered containing Thiamine, which will end today and will start daily po Thiamine. Librium po for 1-2 days planned to prevent alcohol withdrawal. CIWA protocol also ordered. Will start to check daily orthostatic VS. (4) Osteoporosis Qualifiers: Osteoporosis type: age-related Encounter type: sequela Assessment/Plan: Vitamin D started post-op and outpt F/U and management needed. (5) HTN (hypertension) Qualifiers: Hypertension type: essential hypertension Qualified Code(s): I10 - Rose Marie meyer (primary) hypertension Assessment/Plan: BP controlled on her home Lisinopril dose. (6) Alcohol abuse Assessment/Plan: Banana Bag iv ordered containing Thiamine, which will end today and will start daily po Thiamine. Librium po for 1-2 days planned to prevent alcohol withdrawal. CIWA protocol also ordered. (7) Anemia Qualifiers: Other causes of anemia: acute posthemorrhagic Assessment/Plan: She had 500 cc EBL in surgery 2 days ago. Hgb dropped to 7.8 this a.m. Will start oral Iron replacement. Follow H/H daily (8) Macrocytic anemia Assessment/Plan: Her B12 and Folate levels were adrquate. The elevated MCV suggests alcohol abuse, however. (9) Acute delirium Assessment/Plan: Resolved. Will plan no narcotics, Dilaudid prn and Tylenol with Codeine have been DCd - Current Meds Current Meds: Current Medications Generic Name Dose Route Start Last Admin Trade Name Freq PRN Reason Stop Dose Admin Acetaminophen 650 mg 12/17/18 12:00 12/18/18 06:48 Tylenol PO Not Given Q6HR YONY Aspirin 325 mg 12/16/18 17:00 12/18/18 08:14 Catherine PO 325 mg BIDWM YONY Administration Chlordiazepoxide HCl 25 mg 12/17/18 21:00 12/18/18 08:13 Librium PO 25 mg BID YONY Administration Cholecalciferol 1,000 unit 12/17/18 09:00 12/18/18 08:14 Vitamin D3 PO 1,000 unit DAILY YONY Administration Multivitamins 10 ml/ Thiamine 1,011.2 mls @ 100 mls/hr 12/17/18 09:00 12/17/18 19:39 HCl 100 mg/ Folic Acid 1 mg/ IV 12/18/18 19:07 Infused Sodium Chloride DAILY YONY Infusion Ketorolac Tromethamine 15 mg 12/17/18 14:00 12/18/18 06:53 Toradol Inj (15mg) IVP 12/22/18 13:59 15 mg Q6HR YONY Administration Lidocaine 1 patch 12/16/18 19:07 12/17/18 09:45 Lidoderm Patch TOP 1 patch DAILY PRN Administration PAIN Lisinopril 10 mg 12/18/18 09:00 12/18/18 08:14 Zestril PO 10 mg DAILY YONY Administration Lorazepam 2 mg 12/17/18 07:56 12/17/18 18:22 Ativan Inj (Vial) IVP 2 mg Q30M PRN Administration CIWA >8 Protocol Magnesium Oxide 200 mg 12/17/18 13:00 12/18/18 08:15 Mag Ox PO 200 mg DAILYWM YONY Administration Polyethylene Glycol 17 gm 12/16/18 09:00 12/18/18 08:12 Miralax PO 17 gm DAILY YONY Administration Pravastatin Sodium 40 mg 12/16/18 21:00 12/17/18 20:38 Pravachol PO 40 mg QPM YONY Administration Prochlorperazine Edisylate 10 mg 12/16/18 13:54 12/17/18 18:21 Compazine Inj IVP 10 mg Q6HR PRN Administration Nausea / Vomiting Sodium Chloride 10 ml 12/16/18 02:50 12/18/18 06:53 Normal Saline Flush 0.9% IVP 20 ml PRN PRN Administration NEEDED PER PROVIDER ORDERS Sodium Chloride 10 ml 12/16/18 09:00 12/18/18 08:16 Normal Saline Flush 0.9% IVP 10 ml 0100,0900,1700 YONY Administration Sodium Chloride 10 ml 12/16/18 17:00 12/18/18 01:17 Normal Saline Flush 0.9% IVP 10 ml 0100,0900,1700 YONY Administration Sodium Chloride 10 ml 12/16/18 13:54 12/17/18 13:50 Normal Saline Flush 0.9% IVP 10 ml PRN PRN Administration NEEDED PER PROVIDER ORDERS - Lab Result Fish Bone Diagrams: 12/18/18 08:53 12/18/18 04:50 - Additional Planning My Orders: My Active Orders 12/17/18 09:00 Cholecalciferol [Vitamin D3] 1,000 unit PO DAILY Multivitamin [Infuvite] 10 ml Thiamine Inj [Vitamin B-1 Inj] 100 mg Folic Acid Inj 1 mg Sodium Chloride 0.9% [Normal Saline 0.9%] 1,000 ml IV DAILY 12/17/18 09:20 CUL, URINE [RM] Routine 12/17/18 11:40 Haloperidol Inj [Haldol Inj] 1 mg IVP Q12H PRN 12/17/18 12:00 Acetaminophen [Tylenol] 650 mg PO Q6HR 12/17/18 12:09 Echo Transthoracic Complete [ECHO] Routine 12/17/18 13:00 Magnesium Oxide [Mag Ox] 200 mg PO DAILYWM 12/17/18 14:00 Ketorolac Inj (15Mg) [Toradol Inj (15Mg)] 15 mg IVP Q6HR 12/17/18 21:00 chlordiazePOXIDE [Librium] 25 mg PO BID 12/18/18 05:00 TSH [THYROID STIMULATING HORMONE] [IAI] Routine VITAMIN D,D2,D3 PANEL [REFLAB] Routine 12/18/18 09:00 Cetirizine [ZyrTEC] 10 mg PO DAILY PRN Lisinopril [Zestril] 10 mg PO DAILY 12/18/18 09:13 Postural [Vital Signs - Orthostatic] [RC] DAILY 12/18/18 09:30 Thiamine [Vitamin B-1] 100 mg PO DAILY Subjective - Subjective Patient Reports: Resting Comfortably, No Complaints Objective Vital Signs: Vital Signs - 24 hr 12/17/18 12/17/18 12/17/18 09:21 11:15 11:38 Temperature 36.9 C Heart Rate [ Activity] Heart Rate [ 78 76 Brachial] Heart Rate [ Supine] Respiratory 16 Rate Blood Pressure 133/58 H Blood Pressure [Activity] Blood Pressure 157/61 H 148/61 H [Right Brachial artery] Blood Pressure [Supine] O2 Saturation 97 O2 Saturation [ Activity] O2 Saturation [ Supine] 12/17/18 12/17/18 12/17/18 13:29 14:10 16:28 Temperature 37.2 C Heart Rate [ 84 84 Activity] Heart Rate [ 94 Brachial] Heart Rate [ 91 91 Supine] Respiratory 20 Rate Blood Pressure Blood Pressure 154/58 H 154/58 H [Activity] Blood Pressure 160/67 H [Right Brachial artery] Blood Pressure 143/64 H 143/64 H [Supine] O2 Saturation 100 O2 Saturation [ 99 Activity] O2 Saturation [ 99 Supine] 12/17/18 12/18/18 12/18/18 20:19 00:44 04:44 Temperature 36.5 C 36.1 C L Heart Rate [ Activity] Heart Rate [ 97 76 98 Brachial] Heart Rate [ Supine] Respiratory 18 18 Rate Blood Pressure Blood Pressure [Activity] Blood Pressure 128/95 H 141/67 H [Right Brachial artery] Blood Pressure [Supine] O2 Saturation 97 100 O2 Saturation [ Activity] O2 Saturation [ Supine] 12/18/18 07:38 Temperature 37.0 C Heart Rate [ Activity] Heart Rate [ 98 Brachial] Heart Rate [ Supine] Respiratory 16 Rate Blood Pressure Blood Pressure [Activity] Blood Pressure 142/59 H [Right Brachial artery] Blood Pressure [Supine] O2 Saturation 98 O2 Saturation [ Activity] O2 Saturation [ Supine] Oxygen O2 Source Room air Oxygen Flow Rate 2 I&O (Last 24 Hrs): Intake and Output Totals x24h 12/16/18 12/17/18 12/18/18 23:59 23:59 23:59 Intake Total 1200 4011.2 170 Output Total 1650 2750 Balance -450 1261.2 170 General: Alert HEENT: Mucous membr. moist/pink Neck: Supple, No JVD Neuro: Disoriented, Non Focal Cardiovascular: No murmurs Respiratory: No respiratory distress Abdomen: Soft Extremities: No edema - Results Results: Laboratory Results WBC 8.2 x10^3/uL (4.8-10.8) 12/18/18 04:50 RBC 2.58 10^6/uL (4.20-5.40) L 12/18/18 04:50 Hgb 7.8 g/dL (12.0-16.0) L 12/18/18 08:53 Hct 24.1 % (37.0-47.0) L 12/18/18 08:53 MCV 100.8 fL (81.0-99.0) H 12/18/18 04:50 MCH 31.0 pg (27.0-31.0) 12/18/18 04:50 MCHC 30.8 g/dL (32.0-36.0) L 12/18/18 04:50 RDW 12.1 % (12.0-15.0) 12/18/18 04:50 Plt Count 201 10^3/uL (130-450) 12/18/18 04:50 MPV 9.1 fL (7.9-10.8) 12/18/18 04:50 Reticulocyte % (Auto) 1.13 % (0.5-2.3) 12/16/18 07:35 Neut # (Auto) 5.5 10^3/uL (1.5-6.6) 12/18/18 04:50 Lymph # (Auto) 1.8 10^3/uL (1.5-3.5) 12/18/18 04:50 Meagher # (Auto) 0.8 10^3/uL (0.0-1.0) 12/18/18 04:50 Eos # (Auto) 0.0 10^3/uL (0.0-0.7) 12/18/18 04:50 Baso # (Auto) 0.1 10^3/uL (0.0-0.1) 12/18/18 04:50 Absolute Nucleated RBC 0.00 x10^3/uL 12/18/18 04:50 Band Neuts % (Manual) Not Reportable 12/17/18 08:09 Abnorm Lymph % (Manual) Not Reportable 12/17/18 08:09 Nucleated RBC % 0.0 /100WBC 12/18/18 04:50 Neutrophils # (Manual) Not Reportable 12/17/18 08:09 Lymphocytes # (Manual) Not Reportable 12/17/18 08:09 Monocytes # (Manual) Not Reportable 12/17/18 08:09 Eosinophils # (Manual) Not Reportable 12/17/18 08:09 Basophils # (Manual) Not Reportable 12/17/18 08:09 Differential Comment MANUAL=AUTO DIFF 12/17/18 08:09 WBC Morphology NORMAL APPEARANCE (NORMAL) 12/17/18 08:09 Platelet Estimate NORMAL (130-450,000) (NORMAL) 12/17/18 08:09 Platelet Morphology NORMAL APPEARANCE (NORMAL) 12/17/18 08:09 RBC Morph Micro Appear 1+ MICROCYTOSIS (NORMAL) 1+ HYPOCHROMASIA (NORMAL) 12/17/18 08:09 RBC Morph Micro Appear 1+ MICROCYTOSIS (NORMAL) 1+ HYPOCHROMASIA (NORMAL) 12/17/18 08:09 Absolute Retic 0.036 10^6/uL (0.020-0.110) 12/16/18 07:35 PT 11.8 secs (9.9-12.6) 12/17/18 08:09 INR 1.0 (0.8-1.2) 12/17/18 08:09 APTT 24.3 secs (24.9-33.3) L 12/17/18 08:09 Sodium 143 mmol/L (135-145) 12/18/18 04:50 Potassium 3.5 mmol/L (3.5-5.0) 12/18/18 04:50 Chloride 110 mmol/L (101-111) 12/18/18 04:50 Carbon Dioxide 25 mmol/L (21-32) 12/18/18 04:50 Anion Gap 8.0 (6-13) 12/18/18 04:50 BUN 11 mg/dL (6-20) 12/18/18 04:50 Creatinine 0.6 mg/dL (0.4-1.0) 12/18/18 04:50 Estimated GFR (MDRD) 97 (>89) 12/18/18 04:50 Glucose 99 mg/dL (70-100) 12/18/18 04:50 Lactic Acid 1.9 mmol/L (0.5-2.2) 12/16/18 01:00 Calcium 8.2 mg/dL (8.5-10.3) L 12/18/18 04:50 Magnesium 1.7 mg/dL (1.7-2.8) 12/17/18 05:10 Iron 52 ug/dL (28-170) 12/16/18 07:35 TIBC 344 ug/dL (250-450) 12/16/18 07:35 % Saturation 15 % (20-50) L 12/16/18 07:35 Transferrin 246 mg/dL (192-382) 12/16/18 07:35 Ferritin 331.3 ng/mL (11.0-306.8) H 12/16/18 07:35 Total Bilirubin 0.8 mg/dL (0.2-1.0) 12/18/18 04:50 AST 31 IU/L (10-42) 12/18/18 04:50 ALT 21 IU/L (10-60) 12/18/18 04:50 Alkaline Phosphatase 71 IU/L (42-121) 12/18/18 04:50 Lactate Dehydrogenase 216 IU/L (91-225) 12/16/18 07:35 Total Protein 6.1 g/dL (6.7-8.2) L 12/18/18 04:50 Albumin 3.3 g/dL (3.2-5.5) 12/18/18 04:50 Globulin 2.8 g/dL (2.1-4.2) 12/18/18 04:50 Albumin/Globulin Ratio 1.2 (1.0-2.2) 12/18/18 04:50 Lipase 86 U/L (22-51) H 12/16/18 01:00 Vitamin B12 278 pg/mL (180-914) 12/16/18 07:35 Folate 8.40 ng/mL (5.90 - >24.8) 12/17/18 05:10 Urine Color LIGHT YELLOW 12/17/18 09:20 Urine Clarity CLEAR (CLEAR) 12/17/18 09:20 Urine pH 6.0 PH (5.0-7.5) 12/17/18 09:20 Ur Specific [place] <=1.005 (1.002-1.030) 12/17/18 09:20 Urine Protein NEGATIVE mg/dL (NEGATIVE) 12/17/18 09:20 Urine Glucose (UA) NEGATIVE mg/dL (NEGATIVE) 12/17/18 09:20 Urine Ketones NEGATIVE mg/dL (NEGATIVE) 12/17/18 09:20 Urine Occult Blood TRACE-INTA (NEGATIVE) 12/17/18 09:20 Urine Nitrite NEGATIVE (NEGATIVE) 12/17/18 09:20 Urine Bilirubin NEGATIVE (NEGATIVE) 12/17/18 09:20 Urine Urobilinogen 0.2 (NORMAL) E.U./dL (NORMAL) 12/17/18 09:20 Ur Leukocyte Esterase TRACE (NEGATIVE) H 12/17/18 09:20 Urine RBC 0-5 /HPF (0-5) 12/17/18 09:20 Urine WBC 0-3 /HPF (0-5) 12/17/18 09:20 Ur Squamous Epith Cells RARE Squamous (<= Few) 12/17/18 09:20 Urine Bacteria Rare /HPF (None Seen) 12/17/18 09:20 Ur Microscopic Review INDICATED 12/17/18 09:20 Urine Culture Comments INDICATED 12/17/18 09:20 - Procedures Procedures: Procedures EXCISION OF LARGE INTESTINE, ENDO, DIAGN (08/15/16)
[2018-12-18] MEDS: THIAMINE 100 MG TABLET PO SCH (10:14)
[2018-12-18] MEDS: MULTIVITAMIN 10 ML, THIAMINE INJ 100 MG, FOLIC ACID INJ 1 MG in SODIUM CHLORIDE 0.9% 1,... IV SCH (10:15)
[2018-12-18] MEDS ORDERED: SODIUM CHLORIDE FLUSH 0.9% 10 ML SYRINGE ONE (10:22)
--- NOTE | 2018-12-18 12:16 | PROVIDER PROGRESS NOTE ---
Subjective - Prog Note Date Prog Note Date: 12/18/18 Prog Note Time: 12:12 - Subjective Pt reports feeling: Improved (Much less pain today. No SOB or dizziness when upright) Objective - Vital Signs/Intake & Output Vital Signs: Vital Signs x48h Temp Pulse Resp BP Pulse Ox 12/18/18 11:36 36.7 C 86 16 126/56 L 100 12/18/18 07:38 37.0 C 98 16 142/59 H 98 12/18/18 04:44 98 141/67 H Intake & Output: Intake & Output 12/15/18 12/16/18 12/17/18 12/18/18 23:59 23:59 23:59 23:59 Intake Total 1200 4011.2 170 Output Total 1650 2750 Balance -450 1261.2 170 - Lab Results Fish Bones: 12/18/18 08:53 12/18/18 04:50 Other Labs: Lab Results x24hrs 12/18/18 12/18/18 12/18/18 Range/Units 08:53 04:50 04:50 WBC (4.8-10.8) x10^3/uL RBC (4.20-5.40) 10^6/uL Hgb 7.8 L (12.0-16.0) g/dL Hct 24.1 L (37.0-47.0) % MCV (81.0-99.0) fL MCH (27.0-31.0) pg MCHC (32.0-36.0) g/dL RDW (12.0-15.0) % Plt Count (130-450) 10^3/uL MPV (7.9-10.8) fL Neut # (Auto) (1.5-6.6) 10^3/uL Lymph # (Auto) (1.5-3.5) 10^3/uL Wake # (Auto) (0.0-1.0) 10^3/uL Eos # (Auto) (0.0-0.7) 10^3/uL Baso # (Auto) (0.0-0.1) 10^3/uL Absolute Nucleated RBC x10^3/uL Nucleated RBC % /100WBC Sodium 143 (135-145) mmol/L Potassium 3.5 (3.5-5.0) mmol/L Chloride 110 (101-111) mmol/L Carbon Dioxide 25 (21-32) mmol/L Anion Gap 8.0 (6-13) BUN 11 (6-20) mg/dL Creatinine 0.6 (0.4-1.0) mg/dL Estimated GFR (MDRD) 97 (>89) Glucose 99 (70-100) mg/dL Calcium 8.2 L (8.5-10.3) mg/dL Total Bilirubin 0.8 (0.2-1.0) mg/dL AST 31 (10-42) IU/L ALT 21 (10-60) IU/L Alkaline Phosphatase 71 (42-121) IU/L Total Protein 6.1 L (6.7-8.2) g/dL Albumin 3.3 (3.2-5.5) g/dL Globulin 2.8 (2.1-4.2) g/dL Albumin/Globulin Ratio 1.2 (1.0-2.2) TSH 2.49 (0.34-5.60) uIU/mL 12/18/18 Range/Units 04:50 WBC 8.2 (4.8-10.8) x10^3/uL RBC 2.58 L (4.20-5.40) 10^6/uL Hgb 8.0 L (12.0-16.0) g/dL Hct 26.0 L (37.0-47.0) % MCV 100.8 H (81.0-99.0) fL MCH 31.0 (27.0-31.0) pg MCHC 30.8 L (32.0-36.0) g/dL RDW 12.1 (12.0-15.0) % Plt Count 201 (130-450) 10^3/uL MPV 9.1 (7.9-10.8) fL Neut # (Auto) 5.5 (1.5-6.6) 10^3/uL Lymph # (Auto) 1.8 (1.5-3.5) 10^3/uL Wake # (Auto) 0.8 (0.0-1.0) 10^3/uL Eos # (Auto) 0.0 (0.0-0.7) 10^3/uL Baso # (Auto) 0.1 (0.0-0.1) 10^3/uL Absolute Nucleated RBC 0.00 x10^3/uL Nucleated RBC % 0.0 /100WBC Sodium (135-145) mmol/L Potassium (3.5-5.0) mmol/L Chloride (101-111) mmol/L Carbon Dioxide (21-32) mmol/L Anion Gap (6-13) BUN (6-20) mg/dL Creatinine (0.4-1.0) mg/dL Estimated GFR (MDRD) (>89) Glucose (70-100) mg/dL Calcium (8.5-10.3) mg/dL Total Bilirubin (0.2-1.0) mg/dL AST (10-42) IU/L ALT (10-60) IU/L Alkaline Phosphatase (42-121) IU/L Total Protein (6.7-8.2) g/dL Albumin (3.2-5.5) g/dL Globulin (2.1-4.2) g/dL Albumin/Globulin Ratio (1.0-2.2) TSH (0.34-5.60) uIU/mL - Other Results/Comments Other Results/Comments: EXAM: Sitting up in chair. Mild pain with hip motion. Sensation intact. Moves toes well. Good cap filling Assessment/Plan - Problem List (1) Hip fracture, right Impression: Satis post op. HCT stable and she is mobilizing well. No SOB or dizziness when up PLAN: To SNF. Continue PT: walker ambulate -WBAT on right. Continue with THR precautions. RTC in 2 weeks for pavel out and new XR. Qualifiers: Encounter type: initial encounter Fracture type: closed Qualified Code(s): S72.001A - Fracture of unspecified part of neck of right femur, initial encounter for closed fracture
[2018-12-18] MEDS: FERROUS GLUCONATE 324 MG TABLET PO SCH (12:28)
[2018-12-18] MEDS: CALCIUM CARBONATE CHEW 500 MG TABLET PO SCH (20:24)
[2018-12-18] MEDS: PRAVASTATIN 40 MG TABLET PO SCH (20:25)
[2018-12-19] MEDS: KETOROLAC 15 MG/ML VIAL IVP SCH ×3 (00:49→12:01)
[2018-12-19] MEDS: ACETAMINOPHEN 325 MG TABLET PO SCH ×3 (00:49→12:00)
[2018-12-19] MEDS: SODIUM CHLORIDE FLUSH 0.9% 10 ML SYRINGE IVP SCH ×2 (00:50→08:26)
[2018-12-19] MEDS ORDERED: MULTIVITAMIN W/MINERALS TABLET PO SCH (08:00)
[2018-12-19] MEDS: MAGNESIUM OXIDE 400 MG TABLET PO SCH (08:24)
[2018-12-19] MEDS: FERROUS GLUCONATE 324 MG TABLET PO SCH (08:24)
[2018-12-19] MEDS: ASPIRIN 325 MG TABLET PO SCH (08:24)
[2018-12-19] MEDS: chlordiazePOXIDE 25 MG CAPSULE PO SCH (08:25)
[2018-12-19] MEDS: LISINOPRIL 20 MG TABLET PO SCH (08:25)
[2018-12-19] MEDS: CHOLECALCIFEROL 1,000 UNIT TABLET PO SCH (08:25)
[2018-12-19] MEDS: POLYETHYLENE GLYCOL 3350 17 GM PACKET PO SCH (08:26)
[2018-12-19] MEDS: CALCIUM CARBONATE CHEW 500 MG TABLET PO SCH (08:26)
[2018-12-19] MEDS: THIAMINE 100 MG TABLET PO SCH (08:26)
[2018-12-19 09:16] LABS: HGB - HEMOGLOBIN 7.7 g/dL (12.0-16.0)
[2018-12-19 09:23] VITALS: BP 163/61
--- NOTE | 2018-12-19 11:58 | Discharge Plan ---
"Discharge Plan for SNF / [facility] - Discharge Plan And Transition Orders Problem Reviewed?: Yes Disposition: 03 SNF DC/Xfer Condition: Stable Allergies and Adverse Reactions: Allergies Allergy/AdvReac Type Severity Reaction Status Date / Time oxycodone HCl * AdvReac Severe Hallucinati Verified 11/24/17 08:48 [From Percodan] ons oxycodone terephthalate * AdvReac Severe Hallucinati Verified 11/24/17 08:48 [From Percodan] ons Penicillins AdvReac Severe Itching Verified 11/24/17 08:48 Sulfa (Sulfonamide AdvReac Severe Itching Verified 11/24/17 08:48 Antibiotics) hydromorphone [From Dilaudid] AdvReac Hallucinati Verified 12/19/18 11:56 ons Health Concerns: Admitted after a fall at home and hip fracture, which needed surgery, pain control and Physical Therapy. Poor memory is suspected to be due to alcohol use. Plan of Treatment: Aggressive PT and OT at [facility]. Librium to prevent withdrawal is tapering down. Care Goals: Return to independent function at home, after SNF. Assessment: The patient and understand and agree with the plan. - SNF / [facility] Transition Orders Admit to (Facility): [facility] Under the care of (Name): Dr Pedro Pablo Brown and Dr Antione Morton Discharge Diagnosis: (1) Hip fracture, right S/P successful orthopedic surgery (2) Acute delirium (related to Dilaudid dose), resolved One iv dose post-op caused hallucinations and was now added to her Allergy list. (3) Wernicke-Korsakoff syndrome Thiamine started, for this new Dx (4) Fall at home, etiology unknown No orthostasis, normal Echo and EKG and telemetry. Suspected to be due to mild dehydration and alcohol use. (5) Osteoporosis Vitamin D and calcium were started post-op. So as not to interfere with bone remodeling after surgical hip repair, in 4-6 weeks she should be started on Reclast or Prolia. (6) HTN Lisinopril home dose continued (7) Alcohol abuse She is on a tapering down schedule of Librium to prevent withdrawal. (8) Macrocytic anemia Vitamin replacement started (9) Anemia, post-op. Iron replacement started (10) Code status: Full Code Medicare Certification Statement: I certify that Post Hospital senior care care is medically necessary on a continuing basis for any of the conditions for which she/he is receiving care during hospitalization. Notify PCP of admission and forward orders to primary provider for signature. Weight on admission and: Weekly Other Notification Orders: Call PCP immediately if patient develops dyspnea, chest pain/tightness or edema. House Bowel Program: Yes Additional Bowel Program Orders: If no BM after 2 days, nurse may give M.O.M. 30ml PO PRN and/or ducolax Supp 1 [place] and/or LELIA 250mg P.O., and/or senna 1-2 tabs PO. On day 3 nurse may give repeat above order until residents constipation is resolved. Annual Influenza Vaccine (between Oct 26 and May 25): Yes Two-step PPD per [facility] [phone] or approved exception documents: Yes Treatments & Other Orders: Daily PT and OT Orthopedic Orders: See [facility] in 2 weeks for XRays and visit Medication Orders: PLEASE REFER TO THE DISCHARGE MEDICATION LIST. Insulin Orders?: No - Medications New Prescriptions: Acetaminophen [Tylenol] 650 mg PO Q6HR PRN #100 tablet PRN Reason: Pain Aspirin [Catherine] 325 mg PO BIDWM #28 tablet Calcium Carbonate [Tums (Calcium Carbonate 500mg)] 500 mg PO DAILY #30 tablet chlordiazePOXIDE [Librium] 25 mg PO BID #6 capsule Famotidine [Pepcid] 20 mg PO BID #30 tablet Ferrous Gluconate [Fergon] 270 mg PO DAILY #30 tablet Ketorolac [Toradol] 10 mg PO Q6H PRN #28 tablet PRN Reason: Pain Lidocaine Patch 5% [Lidoderm Patch] 1 patch TOP DAILY PRN #30 patch PRN Reason: Pain Magnesium Oxide [Magnesium] 200 mg PO DAILY #30 tab.chew Thiamine [Vitamin B-1] 100 mg PO DAILY #30 tablet Vitc/E/Zinc/Copper/Lutein/Zeax [Icaps Areds2 Chewable Tablet] 1 each PO DAILY #30 tab.chew - Diet Type: No added salt Texture: Regular Liquids: Thin May have monthly special meal: Yes - Therapies | Activity Therapy: Evaluation | Treat if indicated: PT, OT Rehabilitation Potential: Maximize functional status Activity: Activity as Tolerated Weight Bearing: Full Weight Assistance Devices: Walker Follow Up: Orthopedics in 2 weeks. PCP after [facility] from [facility]."
--- NOTE | 2018-12-24 12:17 | DISCHARGE SUMMARY ---
"Discharge Summary Admit Date: 12/16/18 Discharge Date: 12/19/18 Discharging Provider: Dr Amelia Marx Primary Care Provider: Dr Alireza Landon Code Status: Attempt Resuscitation Condition at Discharge: Stable Discharge Disposition: SNF DC/Xfer Discharge Facility Name: [facility] - DIAGNOSES Admission Diagnoses: (1) Hip fracture, right (2) HTN (hypertension) (3) Osteoporosis (4) Abnormal loss of weight (5) Macrocytic anemia Discharge Diagnoses with Status of Each Condition: See below - HPI History of Present Illness: From the admission H&P of Dr Nona Avendano: She is an elderly white female who lives in her own home that is single level, handicap accessible. She has a walk-in shower. She is independent with act ivities of daily living. She has been under some recent stress from activities in the neighborhood and lawsuits among the neighborhood. She is lost 7 to 10 pounds for unexplained reasons. She does have a history of 5 beats of V. tach on Holter monitor in April of this year. This was done because of a sensation of palpitations. A previous Holter in 2014 was negative other than for PACs and PVCs and she is on a beta-carley for this. She was getting ready for bed tonight. She suddenly fell down. There is no antecedent warning, chest pain, palpitations, shortness of breath, nausea. She just found herself on the ground. Her helped get her up and she had immediate hip pain. She was brought to the emergency room where she was evaluated by the ER provider, Dr. Saini. She was found to have a right hip fracture. She does have a normal blood pressure of 125/60. She is mildly hypothermic at 36.3. O2 sats are 87% on room air when she goes to sleep. When she wakes up they go right back up to 94% on room air. She goes to sleep mainly because of Dilaudid. - CONSULTS | PROCEDURES Consultations: Dr Cain Procedures: Cementless right bipolar hip endoprosthesis on 12/16/18 - HOSPITAL COURSE Hospital Course: (1) Hip fracture, right She underwent successful orthopedic surgery on 12/16/18 and then started PT and OT. She was discharged to SNF for further rehab. (2) Acute delirium (related to Dilaudid dose), resolved One iv dose post-op caused hallucinations and was now added to her Allergy list. It was similar to a side effect she had from Oxycodone. No further narcotics were used for pain control. (3) Wernicke-Korsakoff syndrome For 2 days post-op, she did not know where she was. The told me, outside of the patient's room, that she has been progressively more forgetful over the past year. I pointed out to him that she needed inordinately frequent reminders for her age, when seen by her nurses, PT and OT. Her head CT had been done in the ER and was normal. Blood levels of B12, Folate, Iron panel, vitamin D and thyroid were all normal. The patient, and I discussed her alcohol use history which was excessive. She was advised to decrease alcohol intake. She was given iv Banana bag which helped the memory slightly and oral Thiamine was started for this new Dx (4) Fall at home, etiology unknown She had no orthostasis while here, a normal Echo and EKG and telemetry. It was suspected to be due to mild dehydration and alcohol use. (5) Osteoporosis Vitamin D and calcium were started post-op. So as not to interfere with bone remodeling after surgical hip repair, in 4-6 weeks, she should be started on Reclast or Prolia. (6) HTN Lisinopril home dose continued (7) Alcohol abuse The picture emerged of her alcohol abuse: she drank 3+ glasses of wine every day for >15 years. She was on a CIWA protocol for prn Ativan and was started on a tapering down schedule of Librium to prevent withdrawal and discharged to the SNF with that. (8) Macrocytic anemia Her MCV was 99-100. Multi-vitamin with minerals and Thiamine replacement were started (9) Anemia, post-op. There was 500cc EBL and Hgb dropped from 11 at admission to 8. Iron replacement orally was also started - ALLERGIES Allergies/Adverse Reactions: Allergies Allergy/AdvReac Type Severity Reaction Status Date / Time oxycodone HCl * AdvReac Severe Hallucinati Verified 11/24/17 08:48 [From Percodan] ons oxycodone terephthalate * AdvReac Severe Hallucinati Verified 11/24/17 08:48 [From Percodan] ons Penicillins AdvReac Severe Itching Verified 11/24/17 08:48 Sulfa (Sulfonamide AdvReac Severe Itching Verified 11/24/17 08:48 Antibiotics) hydromorphone [From Dilaudid] AdvReac Hallucinati Verified 12/19/18 11:56 ons - MEDICATIONS Home Medications: Ambulatory Orders Medication Instructions Recorded Confirmed Pravastatin [Pravachol] 40 mg PO QPM 11/24/17 12/17/18 Cetirizine [ZyrTEC] 10 mg PO DAILY 12/17/18 12/17/18 Lisinopril 10 mg PO DAILY 12/17/18 12/17/18 Acetaminophen [Tylenol] 650 mg PO Q6HR PRN #100 tablet 12/19/18 Aspirin [Catherine] 325 mg PO BIDWM #28 tablet 12/19/18 Calcium Carbonate [Tums (Calcium 500 mg PO DAILY #30 tablet 12/19/18 Carbonate 500mg)] Famotidine [Pepcid] 20 mg PO BID #30 tablet 12/19/18 Ferrous Gluconate [Fergon] 270 mg PO DAILY #30 tablet 12/19/18 Ketorolac [Toradol] 10 mg PO Q6H PRN #28 tablet 12/19/18 Lidocaine Patch 5% [Lidoderm Patch] 1 patch TOP DAILY PRN #30 patch 12/19/18 Magnesium Oxide [Magnesium] 200 mg PO DAILY #30 tab.chew 12/19/18 Meclizine [Antivert] 25 mg PO Q6H PRN tablet 12/19/18 Thiamine [Vitamin B-1] 100 mg PO DAILY #30 tablet 12/19/18 Vitc/E/Zinc/Copper/Lutein/Zeax 1 each PO DAILY #30 tab.chew 12/19/18 [Icaps Areds2 Chewable Tablet] chlordiazePOXIDE [Librium] 25 mg PO BID #6 capsule 12/19/18 - PHYSICAL EXAM AT DISCHARGE General Appearance: positive: No acute distress Eyes Bilateral: positive: Normal inspection ENT: positive: ENT inspection nml Neck: positive: Nml inspection, No JVD Respiratory: positive: No respiratory distress, Breath sounds nml Cardiovascular: positive: Regular rate & rhythm, No murmur Abdomen: positive: Non-tender, Nml bowel sounds, No distention Extremities: positive: No pedal edema Neurologic/Psychiatric: positive: Disoriented to place, Other (Poor memory) - LABS Result Diagrams: 12/19/18 09:03 12/18/18 04:50"
== END 2018-12-19 14:19 | DRG 470 ==
LOC: EDUNIT# → ED 00:50 → MS2 02:50
PROVIDERS: ADMIT Specialist; ATTEND Internal Medicine
PROC: 0SRR01A Replacement of Right Hip Joint, Femoral Surface with Metal Synthetic Substitute, Uncemented, Open Approach (ICD-10-PCS; principal; 2018-12-16 15:00)
DX: S72.001A Fracture of unspecified part of neck of right femur, initial encounter for closed fracture (principal); S72.011A Unspecified intracapsular fracture of right femur, initial encounter for closed fracture; K51.90 Ulcerative colitis, unspecified, without complications; D62 Acute posthemorrhagic anemia; F10.188 Alcohol abuse with other alcohol-induced disorder; M81.0 Age-related osteoporosis without current pathological fracture; W18.30XA Fall on same level, unspecified, initial encounter; Y92.003 Bedroom of unspecified non-institutional (private) residence as the place of occurrence of the external cause; R44.1 Visual hallucinations; T40.2X5A Adverse effect of other opioids, initial encounter; Y92.239 Unspecified place in hospital as the place of occurrence of the external cause; I10 Essential (primary) hypertension; R00.2 Palpitations; E86.0 Dehydration; D53.9 Nutritional anemia, unspecified; G89.29 Other chronic pain; M54.16 Radiculopathy, lumbar region; R26.9 Unspecified abnormalities of gait and mobility; F41.9 Anxiety disorder, unspecified; E78.00 Pure hypercholesterolemia, unspecified; I49.9 Cardiac arrhythmia, unspecified; R63.4 Abnormal weight loss; R32 Unspecified urinary incontinence; R55 Syncope and collapse; Z79.82 Long term (current) use of aspirin; Z68.21 Body mass index [BMI] 21.0-21.9, adult; Z79.899 Other long term (current) drug therapy
CPT/HCPCS: 36415; 70450; 71045; 72170; 73502; 73700; 80048; 80053; 81001; 82607; 82652; 82728; 82746; 83540; 83605; 83615; 83690; 83735; 84443; 84466; 85014; 85018; 85025; 85045; 85610; 85730; 86850; 86900; 86901; 87086; 93005; 93306; 96374; 96376; 97116; 97161; 97167; 97530; 97535; 99284; 99285; A9270; J1170; J2060; J3411; J7120; 81003

== ENCOUNTER 2019-06-09 08:00 | Outpatient (CLI) | payer MEDICARE, OTHER ==
[2019-06-09 16:50] LABS: BASOPHILS # (AUTO) 0.1 10^3/uL (0.0-0.1); BASOPHILS % (AUTO) 0.8 %; EOSINOPHILS # (AUTO) 0.8 10^3/uL (0.0-0.7); EOSINOPHILS % (AUTO) 8.7 %; HGB - HEMOGLOBIN 10.7 g/dL (12.0-16.0); MEAN CORPUSCULAR HEMOGLOBIN 30.1 pg (27.0-31.0); MEAN CORPUSCULAR HGB CONC 31.2 g/dL (32.0-36.0); MEAN CORPUSCULAR VOLUME 96.6 fL (81.0-99.0); MONOCYTES # (AUTO) 0.8 10^3/uL (0.0-1.0); MONOCYTES % (AUTO) 9.4 %; NEUTROPHILS % (AUTO) 57.9 %; PLT - PLATELET COUNT 329 10^3/uL (130-450); RED BLOOD COUNT 3.55 10^6/uL (4.20-5.40); RED CELL DISTRIBUTION WIDTH 13.4 % (12.0-15.0); WHITE BLOOD COUNT 8.7 x10^3/uL (4.8-10.8)
[2019-06-09 17:54] LABS: ALBUMIN 4.7 g/dL (3.2-5.5); ALBUMIN/GLOBULIN RATIO 1.4 (1.0-2.2); BILIRUBIN,TOTAL 1.2 mg/dL (0.2-1.0); CALCIUM 9.9 mg/dL (8.5-10.3); CREATININE 0.9 mg/dL (0.4-1.0)
== END 2019-06-09 23:59 | disposition home or self-care (01) ==
LOC: LAB.WCP 08:00
PROVIDERS: ATTEND Nurse Practitioner
DX: K51.90 Ulcerative colitis, unspecified, without complications (principal); R10.31 Right lower quadrant pain
CPT/HCPCS: 36415; 80053; 85025

== ENCOUNTER 2019-06-15 11:54 | Outpatient (CLI) | payer MEDICARE, OTHER ==
[2019-06-15] MEDS ORDERED: IOVERSOL 320 50 ML VIAL ONE (12:38)
[2019-06-15] MEDS ORDERED: IOVERSOL 320 100 ML VIAL IVP ONE ×2 (12:38→15:05)
[2019-06-15] MEDS ORDERED: IOVERSOL 320 50 ML VIAL PO ONE (15:05)
--- NOTE | 2019-06-16 15:04 | CT Report ---
Reason: ABDOMINAL PAIN, RLQ, HX ULCERATIVE COLITIS Procedure Date: 06/15/2019 Accession Number: [id number] / [id number] Procedure: CT - Abdomen/Pelvis W CPT Code: Final Report FULL RESULT: EXAM: CT ABDOMEN AND PELVIS EXAM DATE: 06/15/2019 01:44 PM. CLINICAL HISTORY: Right lower quadrant abdominal pain. History of ulcerative colitis. COMPARISONS: None. TECHNIQUE: Routine helical CT imaging was performed through the abdomen and pelvis. IV contrast: 90 mL Optiray 320. Enteric contrast: Yes. Reconstructions: Coronal and sagittal. In accordance with CT protocol optimization, one or more of the following dose reduction techniques were utilized for this exam: automated exposure control, adjustment of mA and/or KV based on patient size, or use of iterative reconstructive technique. FINDINGS: Lung Bases: Clear. Liver: Normal. No focal hepatic lesion. Gallbladder/Bile Ducts: The gallbladder is contracted. No visualized stones or biliary ductal dilatation. Spleen: Normal. Pancreas: Normal. Adrenal Glands: Normal. Kidneys and Ureters: Normal. No stones, hydronephrosis, or hydroureter. Peritoneal Cavity/Bowel: Small diverticulum projecting superiorly from the fourth portion of the duodenum. No focal bowel wall thickening or adjacent mesenteric fat stranding to suggest acute inflammatory process. No evidence for bowel obstruction. The appendix is not seen. No free fluid, pneumoperitoneum, or adenopathy. Pelvic Organs: Partially obscured by streak artifact from hip prosthesis. The bladder and visualized reproductive organs are within normal limits. Vasculature: Moderate atherosclerotic calcifications within the aorta. Bones: 4 nonrib-bearing lumbar vertebral elements, a normal variant. Moderate to severe degenerative disk disease at L4-S1. Right total hip arthroplasty. 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 No acute bony abnormality. Other: Small fat-containing left inguinal hernia with mild fat stranding within the hernia sac. IMPRESSION: 1. Small fat-containing left inguinal hernia with mild fat stranding in the hernia sac possibly representing inflammation. 2. No other potential acute inflammatory or obstructive process identified in the abdomen or pelvis. [facility]
== END 2019-06-15 11:55 | disposition home or self-care (01) ==
LOC: DI 11:54
PROVIDERS: ATTEND Nurse Practitioner
DX: K40.90 Unilateral inguinal hernia, without obstruction or gangrene, not specified as recurrent (principal)
CPT/HCPCS: 74177; Q9967

== ENCOUNTER 2019-06-22 07:00 | Outpatient (CLI) | payer MEDICARE, OTHER | END 2019-06-22 23:59 | disposition home or self-care (01) | LOC: LAB.R 07:00 | PROVIDERS: ATTEND Nurse Practitioner | DX: R10.31 Right lower quadrant pain (principal); K51.90 Ulcerative colitis, unspecified, without complications | CPT/HCPCS: 82274 ==